=== PATIENT | male | born 1965 | race Caucasian/White ===

== ENCOUNTER 2017-02-21 18:32 | Emergency (ER) | payer BC, OTHER ==
[~2017-02-21] VITALS: Ht 180.3 cm; Wt 113.4 kg
[~2017-02-21 18:32] MED LIST: ALBU17AE23 INH; ALPR.5T PO; ALPR0.5T72 PO; CIPR500T78 PO; GLYB2.5T2 PO; INSU100V6 SC; MTR500T PO; NFMET1000 PO; ONDAN4ODT PO; SULF1TAB38 PO
[2017-02-21] MEDS ORDERED: MIDAZOLAM 5 MG/5 ML (VERSED) VIAL ONE (18:35)
[2017-02-21] MEDS ORDERED: GLUCAGON EMERGENCY 1 MG/KIT ONE (18:35)
--- OUTSIDE RECORDS SUMMARY | 2017-02-21 18:37 | XMS REPORT | Continuity of Care Document ---
Author Author [facility] Organization [facility] Address Unknown Phone Unavailable Allergies Active Description Code Type Severity Reaction Onset Reported/Identified Relationship to Patient Clinical Status Yes Penicillins [id number] Drug Allergy Mild N/A 02/17/2010 Medications Problems Date Dx Coded Attending Type Code Diagnosis Diagnosed By 02/17/2010 Ot 883.0 02/17/2010 Ot E000.0 02/17/2010 Ot E016.9 02/17/2010 Ot E849.7 02/17/2010 Ot E920.3 02/17/2010 Ot V06.1 06/02/2010 Ot 558.9 06/02/2010 Ot 787.03 03/29/2011 Ot 789.00 03/09/2012 Ot 789.06 12/10/2012 CHAZ VENEGAS MD Ot 250.00 12/10/2012 CHAZ VENEGAS MD Ot 787.20 12/10/2012 CHAZ VENEGAS MD Ot 935.1 12/10/2012 CHAZ VENEGAS MD Ot E000.8 12/10/2012 CHAZ VENEGAS MD Ot E915 12/10/2012 CHAZ VENEGAS MD Ot V58.67 11/13/2013 KAREN MELISSA DO Ot 530.5 11/16/2014 ERIKA SANDOVAL Ot 883.0 11/16/2014 ERIKA SANDOVAL Ot E000.0 11/16/2014 ERIKA SANDOVAL Ot E849.6 11/16/2014 ERIKA SANDOVAL Ot E928.9 01/03/2015 CHAZ VENEGAS MD Ot 935.1 01/03/2015 CHAZ VENEGAS MD Ot E911 Procedures Results Encounters ACCT No. Visit Date/Time Discharge Status Pt. Type Provider Facility Loc./Unit Complaint [id number] 01/03/2015 18:55:00 2014 20:29:00 DIS Emergency CHAZ VENEGAS MD [facility] ER [id number] 11/16/2014 13:36:00 2014 15:03:00 DIS Emergency ERIKA SANDOVAL [facility] ER [id number] 11/13/2013 16:27:00 2013 17:08:00 DIS Emergency KAREN MELISSA DO [facility] ER [id number] 12/10/2012 00:52:00 2012 01:36:00 DIS Emergency CHAZ VENEGAS MD [facility] ER [id number] 03/09/2012 12:37:00 Document Registration [id number] 03/29/2011 15:51:00 Document Registration [id number] 06/02/2010 13:57:00 Document Registration [id number] 02/17/2010 22:10:00 Document Registration
[2017-02-21] MEDS ORDERED: GLUCAGON EMERGENCY 1 MG/KIT IV ONE (18:45)
[2017-02-21] MEDS ORDERED: ONDANSETRON 4 MG/2 ML (SDV) Z0FRAN IVP ONE (18:45)
[2017-02-21] MEDS ORDERED: MIDAZOLAM 5 MG/5 ML (VERSED) VIAL IVP ONE (18:45)
[2017-02-21] MEDS ORDERED: PANT40TA2 PO (18:50)
--- NOTE | 2017-02-21 18:51 | ED Lower Extremity ---
General Chief Complaint: Foreign Body Stated Complaint: DIFFICULTY SWALLOWING Nursing Triage Note: pt reports he was eating a peña when he felt like part of it got caught in his throat. pt has hx of hiatal hernia. Source: patient Exam Limitations: no limitations History of Present Illness Time seen by provider: 18:47 Initial Comments To ER with reports of esophageal foreign body. Patient states that he was eating danish fries just about 1-1/2 hours ago. He felt as though they get stuck in his distal esophagus and points to the epigastric region. He states that he felt an instant spasm has been unable to swallow even his saliva since then. He does have a history of this earlier this year and was treated here in the emergency room with Versed and glucagon in this past. He has had an EGD before but it's been about 10 years ago. Upon my arrival into the room to assess him he feels as though he has passed this and is in fact able to swallow water and has no residual pain. Onset: just prior to arrival Severity: moderate Allergies and Home Medications Allergies Coded Allergies: Penicillins (Unverified Allergy, Mild, 02/17/10) Home Medications Albuterol 17 Gm Aerosol, 17 GM INH NEEDED, (Reported) Alprazolam 0.5 Mg Tab.rapdis, 0.5 EACH PO HS PRN for SLEEP, (Reported) Ciprofloxacin HCl 500 Mg Tablet, 500 MG PO BID, #14 Ref 0 Prescribed by: ERIKA YUN on 11/16/14 1443 Glyburide 2.5 Mg Tablet, 5 MG PO BID, (Reported) Insulin Glargine,Hum.rec.anlog 100 Unit/1 Ml Vial, 40 UNITS SC HS, (Reported) Metformin Hcl 1,000 Mg Tablet, 1,000 MG PO BID, (Reported) Metronidazole 500 Mg Tab, 500 MG PO BID, #14 Ref 0 Prescribed by: ERIKA YUN on 11/16/14 1443 Pantoprazole Sodium 40 Mg Tablet.dr, 40 MG PO DAILY, #30 Prescribed by: ISIS ROLLINS on 02/21/17 1850 Constitutional: see HPI EENTM: see HPI Respiratory: no symptoms reported Cardiovascular: no symptoms reported Genitourinary: no symptoms reported Skin: no symptoms reported Past Urztxvp-Higgjf-Ncpsnz Hx Patient Social History Recent Foreign Travel: No Contact w/Someone Who Travel: No Immunizations Up To Date Tetanus Booster (TDap): Less than 5yrs Respiratory Respiratory Disorders: Asthma Reproductive System Hx Reproductive Disorders: No Endocrine Endocrine Disorders: Diabetes, Non-Insulin dep Psychosocial Behavioral Health Disorders: Anxiety Family Medical History Significant Family History: No Pertinent Family Hx Physical Exam Vital Signs Vital Sign - Last 12Hours 02/21/17 18:45 Temp 97.0 Pulse 105 Resp 22 B/P (MAP) 190/124 Pulse Ox 96 Capillary Refill : General Appearance: WD/WN, no apparent distress HEENT: PERRL/EOMI, normal ENT inspection Neck: non-tender, full range of motion Respiratory: normal breath sounds, no respiratory distress, no accessory muscle use Gastrointestinal: normal bowel sounds, non tender, soft Hips: bilateral hip non-tender, bilateral hip normal inspection, bilateral hip normal range of motion Legs: bilateral leg non-tender, bilateral leg normal inspection, bilateral leg normal range of motion Knees: bilateral knee non-tender, bilateral knee normal inspection, bilateral knee normal range of motion Ankles: bilateral ankle non-tender, bilateral ankle normal inspection, bilateral ankle normal range of motion Neurologic/Tendon: normal sensation, normal motor functions, normal tendon functions Neurologic/Psychiatric: alert, normal mood/affect, oriented x 3 Skin: normal color, warm/dry Comments Patient was given a glass of water and he is able to drink this without regurgitation or vomiting. Progress/Results/Core Measures Results/Orders My Orders Orders - ISIS ROLLINS APRN Midazolam Injection (Versed Injection) (02/21/17 18:45) Ondansetron Injection (Zofran Injectio (02/21/17 18:45) Glucagon Emergency Kit (Glucagon Emergen (02/21/17 18:45) Midazolam Injection (Versed Injection) (02/21/17 18:35) Glucagon Emergency Kit (Glucagon Emergen (02/21/17 18:35) Vital Signs/I&O Vital Sign - Last 12Hours 02/21/17 18:45 Temp 97.0 Pulse 105 Resp 22 B/P (MAP) 190/124 Pulse Ox 96 Departure Impression Impression: Primary Impression: Esophageal obstruction due to food impaction Disposition: 01 HOME, SELF-CARE Condition: Stable Departure-Patient Inst. Decision time for Depature: 18:49 Referrals: NO,LOCAL PHYSICIAN (PCP) Primary Care Physician BANDAR MONROE APRN (Family) Primary Care Physician JON MANCUSO BRETT D DO JENKINS, XAVIER M MD KIDO, TAKAAKI MD Patient Instructions: Esophageal Dilation, Esophageal Stricture Add. Discharge Instructions: 1. Return to ER for any concerns 2. See your doctor next week 3. Call one of the surgeons listed to make an appointment to repeat an EGD within the next few weeks. All discharge instructions reviewed with patient and /or family. Voiced understanding. Scripts Pantoprazole Sodium (Protonix) 40 Mg Tablet. 40 MG PO DAILY, #30 TAB Prov: ISIS ROLLINS APRN 02/21/17 ISIS ROLLINS APRN Feb 21, 2017 18:51
[2017-02-21 19:16] VITALS: BP 154/101
== END 2017-02-21 19:16 | disposition home or self-care (01) ==
LOC: EDUNIT# 18:32 → ER 18:33
DX: T18.128A Food in esophagus causing other injury, initial encounter (principal); E11.9 Type 2 diabetes mellitus without complications; J45.909 Unspecified asthma, uncomplicated; F41.9 Anxiety disorder, unspecified; Z79.4 Long term (current) use of insulin; Z79.84 Long term (current) use of oral hypoglycemic drugs
CPT/HCPCS: 99282

== ENCOUNTER 2017-03-26 18:41 | Emergency (ER) | payer BC ==
[~2017-03-26 18:41] MED LIST changes: +PANT40TA2 PO
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
== END 2017-03-26 19:05 | disposition left against medical advice (07) ==
LOC: EDUNIT# 18:41 → ER 18:43
DX: S00.96XA Insect bite (nonvenomous) of unspecified part of head, initial encounter (principal); W57.XXXA Bitten or stung by nonvenomous insect and other nonvenomous arthropods, initial encounter

== ENCOUNTER 2018-04-25 22:22 | Emergency (ER) | payer BC ==
[~2018-04-25] VITALS: Ht 180.3 cm; Wt 115.7 kg
[2018-04-25] MEDS ORDERED: ONDANSETRON 4 MG (ZOFRAN) ORAL DISSOLVE TAB ONE (23:03)
[2018-04-25] MEDS ORDERED: PROMETHAZINE INJ 25 MG/ML (PHENERGAN) AMP IM ONE (23:15)
[2018-04-25] MEDS ORDERED: ONDANSETRON 4 MG/2 ML (SDV) Z0FRAN ONE (23:20)
[2018-04-25] MEDS ORDERED: ONDANSETRON 4 MG/2 ML (SDV) Z0FRAN IM ONE (23:30)
[2018-04-25] MEDS ORDERED: ONDANSETRON 4 MG (ZOFRAN) ORAL DISSOLVE TAB PO ONE (23:30)
[2018-04-25] MEDS ORDERED: ONDA4TAB11 PO ×2 (23:31→23:35)
--- NOTE | 2018-04-25 23:31 | ED GI ---
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 Sepsis Screen: No Definite Risk Source of Information: Patient Exam Limitations: No Limitations History of Present Illness Date Seen by Provider: Apr 25, 2018 Time Seen by Provider: 23:07 Initial Comments Patient presents to ER by private conveyance with chief complaint is having nausea vomiting and diarrhea for the past 2 hours. He said his mother had the same thing for the past day. He tried taking some Imodium couple hours ago vomited up. He thinks he might have some irritable bowel syndrome but he doesn' t take anything for it. He does not have any colitis or other inflammatory bowel disease. He is having no fevers or chills. Allergies and Home Medications Allergies Coded Allergies: Penicillins (Unverified Allergy, Mild, 02/17/10) Home Medications Albuterol 17 Gm Aerosol, 17 GM INH NEEDED, (Reported) Alprazolam 0.5 Mg Tab.rapdis, 0.5 EACH PO HS PRN for SLEEP, (Reported) Glyburide 2.5 Mg Tablet, 5 MG PO BID, (Reported) Insulin Glargine,Hum.rec.anlog 100 Unit/1 Ml Vial, 40 UNITS SC HS, (Reported) Metformin Hcl 1,000 Mg Tablet, 1,000 MG PO BID, (Reported) Metronidazole 500 Mg Tab, 500 MG PO BID Prescribed by: ERIKA YUN on 11/16/14 1443 Pantoprazole Sodium 40 Mg Tablet.dr, 40 MG PO DAILY Prescribed by: ISIS ROLLINS on 02/21/17 1850 Patient Home Medication List Home Medication List Reviewed: Yes Review of Systems Review of Systems Constitutional: No chills, No diaphoresis, No fever, No malaise EENTM: No Blurred Vision, No Double Vision Respiratory: Denies Cough, Denies Orthopnea Cardiovascular: Denies Chest Pain, Denies Lightheadedness Gastrointestinal: Denies Constipated; Diarrhea, Nausea, Poor Appetite, Poor Fluid Intake, Vomiting Genitourinary: Denies Discharge, Denies Drainage Musculoskeletal: No back pain, No joint pain Past Pnnakil-Flzjfz-Prfjtu Hx Patient Social History Alcohol Use: Denies Use Recreational Drug Use: No Recent Foreign Travel: No Contact w/Someone Who Travel: No Recent Infectious Disease Expo: No Recent Hopitalizations: No Immunizations Up To Date Tetanus Booster (TDap): Less than 5yrs Date of Influenza Vaccine: Apr 10, 2018 Seasonal Allergies Seasonal Allergies: No Past Medical History Surgeries: Yes (endoscopy and esophageal dilation) Respiratory: Yes Asthma Cardiac: Yes Hypertension Neurological: No Reproductive Disorders: No Genitourinary: No Gastrointestinal: Yes Hiatal Hernia Musculoskeletal: No Endocrine: Yes (DM Type II) Diabetes, Non-Insulin dep HEENT: No Cancer: No Psychosocial: Yes Anxiety Integumentary: No Blood Disorders: No Family Medical History No Pertinent Family Hx Physical Exam Vital Signs Vital Signs - First Documented 04/25/18 22:50 Temp 96.6 Pulse 89 Resp 17 B/P (MAP) 175/115 (135) Capillary Refill : Less Than 3 Seconds Height/Weight/BMI Height: 5'11.00" Weight: 255lbs. oz. 115.663788ey; 33.47 BMI Method:Stated General Appearance: WD/WN, no apparent distress HEENT: PERRL/EOMI, pharynx normal Respiratory: no respiratory distress, no accessory muscle use Cardiovascular: normal peripheral pulses, regular rate, rhythm Gastrointestinal: non tender, soft Neurologic/Psychiatric: alert, oriented x 3 Skin: normal color, warm/dry Progress/Results/Core Measures Results/Orders My Orders Orders - JOLENE GIORDANO Ondansetron Oral Dissolve Tab (Zofran (04/25/18 23:03) Promethazine Injection (Phenergan Injec (04/25/18 23:15) Ondansetron Injection (Zofran Injectio (04/25/18 23:30) Ondansetron Oral Dissolve Tab (Zofran (04/25/18 23:30) Ondansetron Injection (Zofran Injectio (04/25/18 23:20) Medications Given in ED Current Medications Medications Dose Ordered Sig/Janina Route Start Time Stop Time Status Last Admin Dose Admin Ondansetron HCl 4 mg ONCE ONCE IM 04/25/18 23:30 04/25/18 23:31 04/25/18 23:22 4 MG Ondansetron HCl 4 mg STK-MED ONCE .ROUTE 04/25/18 23:03 04/25/18 23:04 DC 04/25/18 23:05 4 MG Vital Signs/I&O 04/25/18 22:50 Temp 96.6 Pulse 89 Resp 17 B/P (MAP) 175/115 (135) Blood Pressure Mean: 135 Progress Progress Note : Time: 23:29 Progress Note We gave him sublingual Zofran and he said it was starting to help and then vomited. We gave him some IM Zofran and we will encourage him to use the Imodium and give him a couple days. Departure Impression Primary Impression: Gastroenteritis and colitis, viral Disposition: HOME, SELF-CARE Condition: Improved Departure-Patient Inst. Decision time for Depature: 23:30 Referrals: NO,LOCAL PHYSICIAN (PCP/Family) Primary Care Physician Patient Instructions: [id number] Add. Discharge Instructions: Typically this lasts from one to 3 days. Use the Zofran 1 tablet every 6 hours and the Imodium use 2 tablets and then every 4 hours afterwards if you have loose watery stool take another tablet. Drink lots of fluids. All discharge instructions reviewed with patient and/or family. Voiced understanding. Scripts Ondansetron (Ondansetron Odt) 4 Mg Tab.rapdis 4 MG PO Q6H PRN for NAUSEA/VOMITING, #8 TAB 0 Refills Prov: JOLENE GIORDANO 04/25/18 Work/School Note: Work Release Form Date Seen in the Emergency Department: Apr 25, 2018 Return to Work: Apr 28, 2018 Restrictions: No Restrictions JOLENE GIORDANO Apr 25, 2018 23:31
[2018-04-25 23:37] VITALS: BP 175/115
== END 2018-04-25 23:39 | disposition home or self-care (01) ==
LOC: EDUNIT# 22:22 → ER 22:23
DX: A08.4 Viral intestinal infection, unspecified (principal); J45.909 Unspecified asthma, uncomplicated; I10 Essential (primary) hypertension; E11.9 Type 2 diabetes mellitus without complications; F41.9 Anxiety disorder, unspecified; Z87.19 Personal history of other diseases of the digestive system; Z88.0 Allergy status to penicillin; Z79.51 Long term (current) use of inhaled steroids; Z79.4 Long term (current) use of insulin
CPT/HCPCS: 99284

== ENCOUNTER → 2018-09-28 | Day surgery (SDC) | payer BC, OTHER ==
[~2018-09-28] VITALS: Ht 180.3 cm; Wt 113.4 kg
[~2018-09-28] MED LIST changes: +GLUCAGON EMERGENCY 1 MG/KIT IV ONE; +INSU100I34; +LACTATED RINGERS 1,000 ML IV ONE; +LACTATED RINGERS 1,000 ML IV SCH; +LIDOCAINE PF 2% 5 ML (XYLOCAINE) VIAL ONE; +MIDAZOLAM 2 MG/2 ML (VERSED) VIAL ONE; +NEBI20TA2; +ONDA4TAB11 PO; +ONDANSETRON 4 MG/2 ML (SDV) Z0FRAN IVP ONE; +ONDANSETRON 4 MG/2 ML (SDV) Z0FRAN ONE; +SEVOFLURANE (ULTANE) 15 ML INHAL SOLN ONE; +SUCCINYLCHOLINE INJ 100 MG/5 ML SYR ONE; +fentaNYL INJECTION 100 MCG/2 ML AMP ONE; +proPOfol 200 MG/20 ML (DIPRIVAN) VIAL IV ONE
--- NOTE | 2018-09-28 20:38 | ED GI ---
General Chief Complaint: Abdominal/GI Problems Stated Complaint: HERNIA Nursing Triage Note: DIFFICULTY SWALLOWING X2 HRS. REPORTS FEELING LIKE SOMETHING STUCK SINCE 1830. HX HIATIAL HERNIA. Sepsis Screen: No Definite Risk Source of Information: Patient Exam Limitations: No Limitations History of Present Illness Date Seen by Provider: Sep 28, 2018 Time Seen by Provider: 20:37 Initial Comments To ER per private vehicle with reports of inability to swallow his secretions or food. This began 2 hours ago when he was eating a piece of beef. History of esophageal food impactions before, sometimes they clear up on their own, sometimes medications help and sometimes he has had have endoscopy. Timing/Duration: 1-3 Hours Severity/Quality: Moderate Location: Epigastric Radiation: No Radiation Activities at Onset: None Allergies and Home Medications Allergies Coded Allergies: Penicillins (Unverified Allergy, Mild, 02/17/10) Home Medications Albuterol 17 Gm Aerosol, 17 GM INH NEEDED, (Reported) Alprazolam 0.5 Mg Tab.rapdis, 0.5 EACH PO HS PRN for SLEEP, (Reported) Glyburide 2.5 Mg Tablet, 5 MG PO BID, (Reported) Patient Home Medication List Home Medication List Reviewed: Yes Review of Systems Review of Systems Constitutional: see HPI EENTM: No Symptoms Reported Respiratory: No Symptoms Reported Cardiovascular: No Symptoms Reported Gastrointestinal: See HPI Genitourinary: No Symptoms Reported Musculoskeletal: no symptoms reported Skin: no symptoms reported Psychiatric/Neurological: No Symptoms Reported Endocrine: No Symptoms Reported Past Qtfizwc-Oodqxw-Ctivzz Hx Patient Social History Alcohol Use: Denies Use Recreational Drug Use: No Smoking Status: Never a Smoker 2nd Hand Smoke Exposure: No Recent Foreign Travel: No Contact w/Someone Who Travel: No Recent Infectious Disease Expo: No Recent Hopitalizations: No Immunizations Up To Date Tetanus Booster (TDap): Less than 5yrs Date of Influenza Vaccine: Apr 10, 2018 Seasonal Allergies Seasonal Allergies: No Past Medical History Surgeries: Yes (endoscopy and esophageal dilation) Respiratory: Yes Asthma Cardiac: Yes Hypertension Neurological: No Reproductive Disorders: No Genitourinary: No Gastrointestinal: Yes Hiatal Hernia Musculoskeletal: No Endocrine: Yes (DM Type II) Diabetes, Non-Insulin dep HEENT: No Cancer: No Psychosocial: Yes Anxiety Integumentary: No Blood Disorders: No Family Medical History No Pertinent Family Hx Physical Exam Vital Signs Vital Signs - First Documented 09/28/18 20:24 Temp 97.8 Pulse 81 Resp 18 B/P (MAP) 172/99 (123) Pulse Ox 97 O2 Delivery Room Air Capillary Refill : Less Than 3 Seconds Height/Weight/BMI Height: 5'11.00" Weight: 250lbs. oz. 113.576265rp; 33.47 BMI Method:Stated General Appearance: WD/WN, no apparent distress HEENT: PERRL/EOMI, normal ENT inspection Respiratory: lungs clear, normal breath sounds, no respiratory distress, no accessory muscle use Cardiovascular: regular rate, rhythm, no murmur Gastrointestinal: normal bowel sounds, non tender, soft Extremities: normal range of motion, non-tender Neurologic/Psychiatric: alert, normal mood/affect, oriented x 3 Skin: normal color, warm/dry Progress/Results/Core Measures Results/Orders My Orders Orders - ISIS ROLLINS APRN Iv Heplock-Insert (Order) (09/28/18 20:35) Ondansetron Injection (Zofran Injectio (09/28/18 20:45) Glucagon Emergency Kit (Glucagon Emergen (09/28/18 20:45) Vital Signs/I&O 09/28/18 20:24 Temp 97.8 Pulse 81 Resp 18 B/P (MAP) 172/99 (123) Pulse Ox 97 O2 Delivery Room Air Blood Pressure Mean: 123 Departure Communication (Admissions) Dr. Gannon is here, will take the patient down to endoscopy Impression Primary Impression: Esophageal obstruction due to food impaction Disposition: 01 HOME, SELF-CARE Condition: Stable Departure-Patient Inst. Decision time for Depature: 20:45 Referrals: KAYE GARCIA MD (PCP/Family) Primary Care Physician ISIS ROLLINS APRN Sep 28, 2018 20:38
--- NOTE | 2018-09-28 20:45 | NUR ---
DR MANCUSO IN ROOM SPEAKING WITH PATIENT. PLAN FOR EGD FOR REMOVAL OF FOOD BOLUS. Addendum: 09/28/18 at [address] MANCUSO CANCELLED ZOFRAN/GLUCAGON ADMINISTRATION.
--- NOTE | 2018-09-28 21:10 | Consultation ---
History of Present Illness History of Present Illness Patient Consulted On(patito/time) 09/28/18 20:57 Time Seen by Provider: 20:49 History of Present Illness Surgery asked to consult regarding Dysphagia; possible impacted food bolus. HPI per ED: To ER per private vehicle with reports of inability to swallow his secretions or food. This began 2 hours ago when he was eating a piece of beef. History of esophageal food impactions before, sometimes they clear up on their own, sometimes medications help and sometimes he has had have endoscopy. Timing/Duration: 1-3 Hours Severity/Quality: Moderate Location: Epigastric Radiation: No Radiation Activities at Onset: None Pt states he had boiled beef and feels it is stuck in the lower esophagus. He states this has happened multiple times before and he "used to get multiple scopes, but last one was 10 years ago." He has also had food removed 2-3 times. He thinks he was told he has a Hiatal hernia. Rating the pain as 4 out of 10. Dull, achey pain. Allergies and Home Medications Allergies Coded Allergies: Penicillins (Unverified Allergy, Mild, 02/17/10) Home Medications Albuterol 17 Gm Aerosol, 17 GM INH NEEDED, (Reported) Alprazolam 0.5 Mg Tab.rapdis, 0.5 EACH PO HS PRN for SLEEP, (Reported) Glyburide 2.5 Mg Tablet, 5 MG PO BID, (Reported) Patient Home Medication List Home Medication List Reviewed: Yes Past Gxouhct-Hkwcnc-Glfnii Hx Patient Social History Alcohol Use: Denies Use Recreational Drug Use: No Smoking Status: Never a Smoker 2nd Hand Smoke Exposure: No Recent Foreign Travel: No Contact w/Someone Who Travel: No Recent Infectious Disease Expo: No Recent Hopitalizations: No Immunizations Up To Date Tetanus Booster (TDap): Less than 5yrs Date of Influenza Vaccine: Apr 10, 2018 Seasonal Allergies Seasonal Allergies: No Surgeries History of Surgeries: Yes (endoscopy and esophageal dilation) Respiratory History of Respiratory Disorde: Yes Respiratory Disorders: Asthma Cardiovascular History of Cardiac Disorders: Yes Cardiac Disorders: Hypertension Neurological History of Neurological Disord: No Reproductive System Hx Reproductive Disorders: No Genitourinary History of Genitourinary Disor: No Gastrointestinal History of Gastrointestinal Di: Yes Gastrointestinal Disorders: Hiatal Hernia Musculoskeletal History of Musculoskeletal Dis: No Endocrine History of Endocrine Disorders: Yes (DM Type II) Endocrine Disorders: Diabetes, Non-Insulin dep HEENT History of HEENT Disorders: No Cancer History of Cancer: No Psychosocial History of Psychiatric Problem: Yes Behavioral Health Disorders: Anxiety Integumentary History of Skin or Integumenta: No Blood Transfusions History of Blood Disorders: No Family Medical History Significant Family History: Cancer (brother of brain cancer) Review of Systems-General Constitutional: No chills, No diaphoresis, No weakness EENTM: No hearing loss, No blurred vision, No mouth pain, No epistaxis, No throat swelling Respiratory: No cough, No dyspnea on exertion, No hemoptysis, No phlegm, No short of breath Cardiovascular: No chest pain, No edema Gastrointestinal: abdominal pain; No constipation; dysphagia; No hematemesis, No jaundice; nausea Genitourinary: No dysuria, No frequency, No hematuria Musculoskeletal: No back pain, No joint pain, No joint swelling, No muscle stiffness Skin: No change in color, No change in hair/nails Psychiatric/Neurological: Anxiety; Denies Depressed, Denies Seizure, Denies Tremors Other Pt denies abnormal bleeding or bruising, no heat or cold intolerance Physical Exam-General Problems Physical Exam Vital Signs Vital Signs - First Documented 09/28/18 20:24 Temp 97.8 Pulse 81 Resp 18 B/P (MAP) 172/99 (123) Pulse Ox 97 O2 Delivery Room Air Capillary Refill : Less Than 3 Seconds General Appearance: WD/WN, mild distress Eyes: Bilateral Eye PERRL, Bilateral Eye EOMI HEENT: pharynx normal; No scleral icterus (R), No scleral icterus (L), No pale conjunctivae (R), No pale conjunctivae (L) Neck: supple; No thyromegaly Respiratory: chest non-tender, lungs clear, normal breath sounds, no respiratory distress, no accessory muscle use Cardiovascular: regular rate, rhythm, no edema, no murmur Gastrointestinal: normal bowel sounds, soft, no organomegaly, no pulsatile mass Back: no CVA tenderness, no vertebral tenderness Extremities: normal range of motion, non-tender, no pedal edema, no calf tenderness, normal capillary refill 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 He states glucagon has worked in the past; but I told him that only works 30% of the time and the endo crew and anesthesia is already here. Discussed risks and complications, not limited to pain, bleeding, possible esophageal perforation. All questions answered to his satisfaction. JON MANCUSO DO Sep 28, 2018 21:10
--- NOTE | 2018-09-28 22:23 | Progress Note-Post Operative ---
Post-Operative Progess Note Surgeon (s)/Casing Runner (s) Surgeon JON MANCUSO DO Casing Runner: none Pre-Operative Diagnosis Dysphagia, impacted food bolus Post-Operative Diagnosis Same Procedure & Operative Findings Date of Procedure 09/28/18 Procedure Performed/Findings EGD with removal of food bolus Anesthesia Type GET Estimated Blood Loss Estimated blood loss (mL): scant Specimens/Packing Specimens Removed boiled beef JON MANCUSO DO Sep 28, 2018 22:23
--- NOTE | 2018-09-28 22:35 | Anesthesia-General Post-Op ---
MAC Patient Condition Mental Status/LOC: Same as Preop Cardiovascular: Satisfactory Nausea/Vomiting: Absent Respiratory: Satisfactory Pain: Controlled Complications: Absent Post Op Complications Complications None Follow Up Care/Instructions Patient Instructions None needed. Anesthesiology Discharge Order Discharge Order Patient is doing well, no complaints, stable vital signs, no apparent adverse anesthesia problems. No complications reported per nursing. CLARA ELLIOTT CRNA Sep 28, 2018 22:35
[2018-09-28 23:19] VITALS: BP 133/82
--- NOTE | 2018-09-29 03:32 | OPERATIVE REPORT ---
DATE OF SERVICE: 09/28/2018 PREOPERATIVE DIAGNOSES: 1. Dysphagia. 2. Possible impacted food bolus. POSTOPERATIVE DIAGNOSES: 1. Dysphagia. 2. Possible impacted food bolus. PROCEDURE: EGD with removal of food bolus. SURGEON: Jonathon Mancuso DO. TESTER ARMATURE OR FIELDS: None. ANESTHESIA: IV sedation by PROGRAM AIDE GROUP WORK. SPECIMEN: Food bolus. BLOOD LOSS: Scant. FLUIDS: Per anesthesia. POSTOPERATIVE CONDITION: Stable. INDICATION FOR PROCEDURE: The patient is a 52-year-old male who states he had some boiled beef and felt like it got stuck and could not get it past. FINDINGS: The patient had a very large portion of boiled beef stuck down in the distal esophagus, did not appear to have any strictures and he also had a lot of food in his belly. PROCEDURE NOTE: After informed consent was obtained, the patient was brought to the endoscopy suite, placed in the bed in supine position. He was intubated by the PROGRAM AIDE GROUP WORK who then monitored his vitals the entire time, heart rate, blood pressure and pulse ox. I then inserted the scope down the mouth through the esophagus into the distal esophagus. I saw a large food bolus, took a picture of this and then carefully started taking it out; actually, I had to use the [employer] and came out 3 large pieces. It took quite a while to get this out. Finally, we get this out and pushed into the stomach. He had a lot of food and fluid in the stomach as well. No other obvious pathology. May have had a little bit of esophagitis, did not appear to have any strictures, pictures of the rest of the esophagus were taken at this point, then removed the scope up out of the stomach out of the esophagus and then out of the mouth. The patient tolerated the procedure, recovered in the endoscopy suite. Job ID: [id number] DocumentID: [id number] Dictated Date: 09/28/2018 22:19:50 Fur Repair Inspector Date: 09/29/2018 03:32:12 Dictated By: JONATHON MANCUSO DO
== END | disposition home or self-care (01) ==
LOC: EDUNIT# 20:09 → ER 20:10 → ENDO 20:49
PROVIDERS: ATTEND Surgery
DX: T18.128A Food in esophagus causing other injury, initial encounter (principal); K20.9 Esophagitis, unspecified; E11.9 Type 2 diabetes mellitus without complications; I10 Essential (primary) hypertension; J45.909 Unspecified asthma, uncomplicated; F41.9 Anxiety disorder, unspecified; E66.9 Obesity, unspecified; Z68.34 Body mass index [BMI] 34.0-34.9, adult; Z79.4 Long term (current) use of insulin; Z79.899 Other long term (current) drug therapy

== ENCOUNTER 2019-08-14 21:44 | Emergency (ER) | payer OTHER ==
[~2019-08-14] VITALS: Ht 180.3 cm; Wt 116.8 kg
[~2019-08-14 21:44] MED LIST changes: -GLUCAGON EMERGENCY 1 MG/KIT IV ONE; -LACTATED RINGERS 1,000 ML IV ONE; -LACTATED RINGERS 1,000 ML IV SCH; -LIDOCAINE PF 2% 5 ML (XYLOCAINE) VIAL ONE; -MIDAZOLAM 2 MG/2 ML (VERSED) VIAL ONE; -ONDANSETRON 4 MG/2 ML (SDV) Z0FRAN IVP ONE; -ONDANSETRON 4 MG/2 ML (SDV) Z0FRAN ONE; -SEVOFLURANE (ULTANE) 15 ML INHAL SOLN ONE; -SUCCINYLCHOLINE INJ 100 MG/5 ML SYR ONE; -fentaNYL INJECTION 100 MCG/2 ML AMP ONE; -proPOfol 200 MG/20 ML (DIPRIVAN) VIAL IV ONE
--- NOTE | 2019-08-14 22:21 | ED GI ---
General Chief Complaint: Abdominal/GI Problems Stated Complaint: VOMITTING Nursing Triage Note: Pt to ED with c/o vomiting and diarrhea once about an hour ago. Pt reports having floaters in R eye after vomiting, but reports improvement in the eye. Sepsis Screen: No Definite Risk Source of Information: Patient Exam Limitations: No Limitations History of Present Illness Date Seen by Provider: Aug 14, 2019 Time Seen by Provider: 22:05 Initial Comments Here with report of vomiting and diarrhea with a few episodes of each that occurred about an hour ago. Also noted floaters in his right eye. He states all of this is actually better now. He believes that it's related to stress that he is having at home and he's had this issue previously. He is a diabetic. He states overall he is doing much better and would just like to go home. Timing/Duration: 1 Hour, Gone Now Severity/Quality: Moderate, Cramping Location: Generalized Abdomen Radiation: No Radiation Activities at Onset: Activity Modifying Factors: Improves With Resting Associated Symptoms: No Back Pain, No Chest Pain, No Fever/Chills, No Fatigue; Nausea/Vomiting; No Shortness of Air, No Weakness Allergies and Home Medications Allergies Coded Allergies: Penicillins (Unverified Allergy, Mild, 02/17/10) Home Medications Albuterol 17 Gm Aerosol, 17 GM INH NEEDED, (Reported) Alprazolam 0.5 Mg Tab.rapdis, 0.5 EACH PO HS PRN for SLEEP, (Reported) Glyburide 2.5 Mg Tablet, 5 MG PO BID, (Reported) Patient Home Medication List Home Medication List Reviewed: Yes Review of Systems Review of Systems Constitutional: see HPI; No chills, No fever EENTM: No Symptoms Reported Respiratory: No Symptoms Reported Cardiovascular: No Symptoms Reported Gastrointestinal: See HPI, Diarrhea, Nausea, Vomiting Genitourinary: No Symptoms Reported Musculoskeletal: no symptoms reported Psychiatric/Neurological: Anxiety; Denies Weakness Past Xbhaiyp-Idcxsv-Oeqngq Hx Past Med/Social Hx: Reviewed Nursing Past Med/Soc Hx Patient Social History Alcohol Use: Denies Use Recreational Drug Use: No 2nd Hand Smoke Exposure: No Recent Foreign Travel: No Contact w/Someone Who Travel: No Recent Infectious Disease Expo: No Recent Hopitalizations: No Immunizations Up To Date Tetanus Booster (TDap): Less than 5yrs Date of Influenza Vaccine: Apr 10, 2018 Seasonal Allergies Seasonal Allergies: No Past Medical History Surgeries: Yes (endoscopy and esophageal dilation) Respiratory: Yes Asthma Cardiac: Yes Hypertension Neurological: No Reproductive Disorders: No Genitourinary: No Gastrointestinal: Yes Hiatal Hernia Musculoskeletal: No Endocrine: Yes (DM Type II) Diabetes, Non-Insulin dep HEENT: No Cancer: No Psychosocial: Yes Anxiety Integumentary: No Blood Disorders: No Family Medical History Reviewed Nursing Family Hx Cancer Physical Exam Vital Signs Vital Signs - First Documented 08/14/19 21:52 Temp 37.3 Pulse 82 Resp 14 B/P (MAP) 147/88 (107) Pulse Ox 98 O2 Delivery Room Air Capillary Refill : Less Than 3 Seconds Height/Weight/BMI Height: 5'11.00" Weight: 250lbs. oz. 113.650290wj; 35.00 BMI Method:Stated General Appearance: WD/WN, no apparent distress HEENT: PERRL/EOMI, pharynx normal Neck: full range of motion, supple Respiratory: lungs clear, normal breath sounds Cardiovascular: regular rate, rhythm, no murmur Gastrointestinal: normal bowel sounds, non tender, soft, no organomegaly, no pulsatile mass Neurologic/Psychiatric: alert, oriented x 3 Skin: normal color, warm/dry Progress/Results/Core Measures Results/Orders My Orders Orders - JEANNE ROME MD Accucheck Stat ONCE (08/14/19 22:14) Vital Signs/I&O 08/14/19 21:52 Temp 37.3 Pulse 82 Resp 14 B/P (MAP) 147/88 (107) Pulse Ox 98 O2 Delivery Room Air Blood Pressure Mean: 107 Progress Progress Note : Progress Note Seen and evaluated. I did offer workup which patient would like to defer at this point since he is feeling better. I think this is reasonable but we will check fingerstick blood sugar as well as visual acuity. Patient has ondansetron at home. I will give him work note so that he can go home and rest. I did discuss with him at length about returning if he is having any concerns and patient states that he would. Discharged home with return precautions. Patient verbalize understanding instructions and agreement with plan. Departure Impression Primary Impression: Nausea and vomiting Qualified Codes: R11.2 - Nausea with vomiting, unspecified Additional Impression: Diarrhea Qualified Codes: R19.7 - Diarrhea, unspecified Disposition: 01 HOME, SELF-CARE Condition: Improved Departure-Patient Inst. Decision time for Depature: 22:20 Referrals: KAYE GARCIA MD (PCP/Family) Primary Care Physician Patient Instructions: Acute Abdomen (Belly Pain), Adult (DC), Diarrhea in Adolescents and Adults, Nausea and Vomiting, Adult (DC) Add. Discharge Instructions: All discharge instructions reviewed with patient and/or family. Voiced understanding. Continue home medications as previously prescribed. Clear liquid diet for the next 12-24 hours and then advance as tolerated. Drink plenty of fluids with taking small sips frequently. Return for worse pain, fever, vomiting, weakness, breathing problems or other concerns as needed. Follow-up with your Dr. in a few days for recheck. Work/School Note: Work Release Form Date Seen in the Emergency Department: Aug 14, 2019 Return to Work: Aug 15, 2019 Restrictions: Return-No Vomiting(24hrs) JEANNE ROME MD Aug 14, 2019 22:21
[2019-08-14 22:30] VITALS: BP 147/88
== END 2019-08-14 22:35 | disposition home or self-care (01) ==
LOC: EDUNIT# 21:44 → ER 21:45
DX: R11.2 Nausea with vomiting, unspecified (principal); R19.7 Diarrhea, unspecified; J45.909 Unspecified asthma, uncomplicated; E11.9 Type 2 diabetes mellitus without complications; F41.9 Anxiety disorder, unspecified; Z88.0 Allergy status to penicillin
CPT/HCPCS: 82962

== ENCOUNTER 2020-08-24 14:07 | Emergency (ER) | payer OTHER ==
[~2020-08-24] VITALS: Ht 180 cm; Wt 113.0 kg
--- NOTE | 2020-08-24 14:45 | ED GI ---
General Chief Complaint: Foreign Body Stated Complaint: HIATAL? HERNIA Nursing Triage Note: ARRIVED VIA AMB TO ROOM 03. 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 STATES THIS HAS HAPPENED BEFORE. Sepsis Screen: No Definite Risk Source of Information: Patient Exam Limitations: No Limitations History of Present Illness Date Seen by Provider: Aug 24, 2020 Time Seen by Provider: 14:14 Initial Comments Here with report of having turkey stuck in his esophagus. Has had problems with esophageal obstruction in the past and has had to have EGD procedure to clear obstruction previously a few different times. Denies other injury or concerns. Patient is type II diabetic. Timing/Duration: 1/2 Hour Severity/Quality: Moderate, Cramping, Full Location: Epigastric Radiation: No Radiation Activities at Onset: Other (Eating) Modifying Factors: Worsens With Eating Associated Symptoms: No Fever/Chills; Nausea/Vomiting; No Shortness of Air Allergies and Home Medications Allergies Coded Allergies: Penicillins (Unverified Allergy, Mild, 02/17/10) Home Medications Albuterol 17 Gm Aerosol, 17 GM INH NEEDED, (Reported) Alprazolam 0.5 Mg Tab.rapdis, 0.5 EACH PO HS PRN for SLEEP, (Reported) Glyburide 2.5 Mg Tablet, 5 MG PO BID, (Reported) Patient Home Medication List Home Medication List Reviewed: Yes Review of Systems Review of Systems Constitutional: see HPI; No chills, No fever EENTM: See HPI Respiratory: Denies Cough, Denies Shortness of Air Cardiovascular: No Symptoms Reported Gastrointestinal: Nausea, Vomiting Genitourinary: No Symptoms Reported Musculoskeletal: no symptoms reported Skin: no symptoms reported All Other Systems Reviewed Negative Unless Noted: Yes Past Yovnhzq-Ntofsv-Bbbanw Hx Past Med/Social Hx: Reviewed Nursing Past Med/Soc Hx Patient Social History Alcohol Use: Denies Use Smoking Status: Never a Smoker 2nd Hand Smoke Exposure: No Recent Infectious Disease Expo: No Recent Hopitalizations: No Immunizations Up To Date Tetanus Booster (TDap): Less than 5yrs Date of Influenza Vaccine: Apr 10, 2018 Seasonal Allergies Seasonal Allergies: No Past Medical History Surgeries: Yes (endoscopy and esophageal dilation) Respiratory: Yes Asthma Cardiac: Yes Hypertension Neurological: No Reproductive Disorders: No Genitourinary: No Gastrointestinal: Yes Hiatal Hernia Musculoskeletal: No Endocrine: Yes (DM Type II) Diabetes, Non-Insulin dep HEENT: No Cancer: No Psychosocial: Yes Anxiety Integumentary: No Blood Disorders: No Family Medical History Reviewed Nursing Family Hx Cancer Physical Exam Vital Signs Vital Signs - First Documented 08/24/20 14:07 Temp 37.0 Pulse 70 Resp 16 B/P (MAP) 155/93 (113) Pulse Ox 97 O2 Delivery Room Air Capillary Refill : Less Than 3 Seconds Height/Weight/BMI Height: 5'11.00" Weight: 250lbs. oz. 113.064642xo; 34.00 BMI Method:Stated General Appearance: WD/WN, no apparent distress HEENT: PERRL/EOMI, pharynx normal Neck: full range of motion, supple Respiratory: lungs clear, normal breath sounds Cardiovascular: regular rate, rhythm, no murmur Gastrointestinal: non tender, soft Extremities: normal range of motion, non-tender Neurologic/Psychiatric: alert, oriented x 3 Skin: normal color, warm/dry Progress/Results/Core Measures Results/Orders My Orders Orders - JEANNE ROME MD Ed Iv/Invasive Line Start (08/24/20 14:26) Vital Signs/I&O 08/24/20 14:07 Temp 37.0 Pulse 70 Resp 16 B/P (MAP) 155/93 (113) Pulse Ox 97 O2 Delivery Room Air Blood Pressure Mean: 113 Progress Progress Note : Progress Note Seen and evaluated. IV ordered. Discussed case with Dr. Chavez at 1414 and he will see the patient and take him to the OR for clearing of the esophageal obstruction. This was discussed with the patient who agrees. Monitor patient. 1445: Dr. Chavez at bedside. Obstruction spontaneously cleared. He is able to drink water. Patient has been seen by Dr. Mancuso previously. Dr. Chavez would like him to be seen within the next 3 to 6 weeks for recheck and repeat upper endoscopy. Recommend clear liquid diet for the next 2 to 3 days and then advance as tolerated. We will monitor him in the ER for continuing improvement and discharge when we ensure he is comfortable. 1515: Patient remains doing better and resting peacefully. Is discharged home with return precautions. Patient verbalized understanding of instructions and agreement with plan. Departure Communication (Admissions) Time/Spoke to Consulting Phy: 14:14 Impression Primary Impression: Foreign body in esophagus Qualified Codes: T18.108A - Unspecified foreign body in esophagus causing other injury, initial encounter Disposition: HOME, SELF-CARE Condition: Improved Admissions Decision to Admit Reason: Admit from ER (General) Decision to Admit/Date: Aug 24, 2020 Time/Decision to Admit Time: 14:14 Departure-Patient Inst. Decision time for Depature: 15:15 Referrals: JON MANCUSO BRETT D DO MANZER, JONATHAN L MD (PCP/Family) Primary Care Physician Patient Instructions: Food Obstruction Add. Discharge Instructions: All discharge instructions reviewed with patient and/or family. Voiced unders tanding. Clear liquid diet for the next 2 to 3 days and then advance as tolerated. You need to follow-up with Dr. Mancuso or Dr. Chavez in the next 3 to 6 weeks for recheck and further evaluation including repeat upper endoscopy as indicated. Return for worse pain, fever, vomiting, weakness, breathing problems or other concerns as needed. JEANNE ROME MD Aug 24, 2020 14:45
--- NOTE | 2020-08-24 14:55 | Consultation - Surgery ---
BANDAR SAGE MED STUDENT 08/24/20 1455: History of Present Illness History of Present Illness Patient Consulted On(patito/time) 08/24/20 14:50 Date Seen by Provider: Aug 24, 2020 Time Seen by Provider: 14:45 Reason for Visit: esophageal food bolus impaction History of Present Illness surgery Consulted to esophageal food bolus disimpaction. Pt is a 54y/o M with PMH of Hiatal hernia, HTN, and IDDM who pres to ER to food bolus impaction. Pt states it stated after eating turkey for lunch at 13:00- denies any recent dysphagia for solids for liquids. Pt states this has happened 'many times' over 20 years, most recently 2 years ago - Dr. Fontaine disimpacted bolus then. Pt contributes impaction hx to his hiatal hernia, denies hx of any other GI dx. Denies any dx discovery when EGD was last done for impaction 2 years ago. Pt cannot swallow own saliva. Denies abd pain and N/V, or recent weight loss. Denies chest pain, or palpitation. Allergies and Home Medications Allergies Coded Allergies: Penicillins (Unverified Allergy, Mild, 02/17/10) Home Medications Albuterol 17 Gm Aerosol, 17 GM INH NEEDED, (Reported) Alprazolam 0.5 Mg Tab.rapdis, 0.5 EACH PO HS PRN for SLEEP, (Reported) Glyburide 2.5 Mg Tablet, 5 MG PO BID, (Reported) Past Sulomtu-Frycol-Fednuh Hx Patient Social History Smoking Status: Never a Smoker 2nd Hand Smoke Exposure: No Recent Hopitalizations: No Immunizations Up To Date Tetanus Booster (TDap): Less than 5yrs Date of Influenza Vaccine: Apr 10, 2018 Seasonal Allergies Seasonal Allergies: No Surgeries History of Surgeries: Yes (endoscopy and esophageal dilation) Respiratory History of Respiratory Disorde: Yes Respiratory Disorders: Asthma Cardiovascular History of Cardiac Disorders: Yes Cardiac Disorders: Hypertension Neurological History of Neurological Disord: No Reproductive System Hx Reproductive Disorders: No Genitourinary History of Genitourinary Disor: No Gastrointestinal History of Gastrointestinal Di: Yes Gastrointestinal Disorders: Hiatal Hernia Musculoskeletal History of Musculoskeletal Dis: No Endocrine History of Endocrine Disorders: Yes (DM Type II) Endocrine Disorders: Diabetes, Non-Insulin dep HEENT History of HEENT Disorders: No Cancer History of Cancer: No Psychosocial History of Psychiatric Problem: Yes Behavioral Health Disorders: Anxiety Integumentary History of Skin or Integumenta: No Blood Transfusions History of Blood Disorders: No Family Medical History Significant Family History: Cancer Review of Systems-General Constitutional: No chills, No diaphoresis EENTM: other (food impaction, cant swallow saliva. ); No ear discharge, No hearing loss, No blurred vision, No double vision Respiratory: No dyspnea on exertion, No hemoptysis, No short of breath Cardiovascular: No chest pain, No edema Gastrointestinal: No abdominal pain, No constipation, No diarrhea; dysphagia; No hematemesis, No heartburn, No melena, No nausea, No vomiting Genitourinary: No dysuria, No incontinence Musculoskeletal: No back pain, No joint pain Skin: No change in color, No change in hair/nails Psychiatric/Neurological: Anxiety; Denies Headache, Denies Numbness Physical Exam-General Problems Physical Exam Vital Signs Vital Signs - First Documented 08/24/20 14:07 Temp 37.0 Pulse 70 Resp 16 B/P (MAP) 155/93 (113) Pulse Ox 97 O2 Delivery Room Air Capillary Refill : Less Than 3 Seconds General Appearance: WD/WN, no apparent distress HEENT: PERRL/EOMI, normal ENT inspection Neck: non-tender, normal inspection Respiratory: chest non-tender, lungs clear, normal breath sounds, no respiratory distress Cardiovascular: regular rate, rhythm, no edema Peripheral Pulses: 2+ Radial Pulses (R), 2+ Radial Pulses (L) Gastrointestinal: normal bowel sounds, non tender, no organomegaly, no pulsatile mass Rectal: deferred Back: normal inspection, no CVA tenderness, no vertebral tenderness Extremities: non-tender, normal inspection 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 SHEELA FONTAINE DO 08/26/20 1602: History of Present Illness History of Present Illness History of Present Illness Consult seen and evaluated in ED for esophageal obstruction. Patient is a 54 year old male who was eating turkey for lunch and had lodge in esophagus. Can not keep secretions down. Patient then felt this area relieved of pressure and food went down. Now can keep secretions down. He has history of hiatal hernia and need for removal of food bolus by Dr. Gannon about 2 years ago. No other complaints at this time. Denies fever sweats chills shortness of breath or chest pain. Allergies and Home Medications Allergies Coded Allergies: Penicillins (Unverified Allergy, Mild, 02/17/10) Home Medications Albuterol 17 Gm Aerosol, 17 GM INH NEEDED, (Reported) Alprazolam 0.5 Mg Tab.rapdis, 0.5 EACH PO HS PRN for SLEEP, (Reported) Glyburide 2.5 Mg Tablet, 5 MG PO BID, (Reported) Patient Home Medication List Home Medication List Reviewed: Yes Past Ehofxna-Zjiebt-Xjldjd Hx Reviewed Nursing Assessment Reviewed/Agree w Nursing PMH: Yes Family Medical History Significant Family History: No Pertinent Family Hx Review of Systems-General Constitutional: No chills, No diaphoresis EENTM: other (food impaction, cant swallow saliva. ); No ear discharge, No hea ring loss, No blurred vision, No double vision Respiratory: No dyspnea on exertion, No hemoptysis, No short of breath Cardiovascular: No chest pain, No edema Gastrointestinal: No abdominal pain, No constipation, No diarrhea; dysphagia; No hematemesis, No melena, No nausea, No vomiting Musculoskeletal: No back pain, No joint pain Skin: No change in color, No change in hair/nails Psychiatric/Neurological: Anxiety; Denies Headache, Denies Numbness All Other Systems Reviewed Negative Unless Noted: Yes (Negative excepted noted.) Physical Exam-General Problems Physical Exam General Appearance: WD/WN, no apparent distress HEENT: PERRL/EOMI, normal ENT inspection Neck: non-tender, normal inspection Respiratory: chest non-tender, no respiratory distress, no accessory muscle use Cardiovascular: regular rate, rhythm, no JVD Gastrointestinal: non tender, no organomegaly, no pulsatile mass Rectal: deferred Back: normal inspection, no CVA tenderness Extremities: non-tender, normal inspection 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 will hold off on doing at this time. discussed with patient staying on easy to swallow diet and follow up with Dr. Gannon this week or next to discuss repeating egd may benefit from dilation Patient agrees with plan. Supervisory-Addendum Brief Verification & Attestation Participated in pt care: history, MDM, physical Personally performed: exam, history, MDM, supervision of care Care discussed with: Medical Student Procedures: n/a Results interpretation: Verified all documentation Verification and Attestation of Medical Student E/M Service A medical student performed and documented this service in my presence. I reviewed and verified all information documented by the medical student and made modifications to such information, when appropriate. I personally performed the physical exam and medical decision making. Sheela Fontaine, Aug 24, 2020,16:06 BANDAR SAGE MED STUDENT Aug 24, 2020 14:55 SHEELA FONTAINE DO Aug 26, 2020 16:02
[2020-08-24 15:30] VITALS: BP 131/83
== END 2020-08-24 15:30 | disposition home or self-care (01) ==
LOC: EDUNIT# 14:07 → ER 14:08 → SDC 14:41 → ER 15:30
DX: T18.128A Food in esophagus causing other injury, initial encounter (principal); J45.909 Unspecified asthma, uncomplicated; F41.9 Anxiety disorder, unspecified; E11.9 Type 2 diabetes mellitus without complications; Z88.0 Allergy status to penicillin; Z80.9 Family history of malignant neoplasm, unspecified

== ENCOUNTER 2020-11-14 12:16 | Emergency (ER) | payer OTHER ==
[~2020-11-14] VITALS: Ht 180.3 cm; Wt 113.4 kg
[2020-11-14 12:21] VITALS: BP 148/89
[2020-11-14] MEDS ORDERED: TETANUS,DIPTH,PERTUSS P/F (BOOSTRIX) 0.5 ML VIAL IM ONE (12:30)
--- NOTE | 2020-11-14 12:30 | ED Integumentary General ---
General Chief Complaint: Bite-Animal/Human/Insect Stated Complaint: R LEG DOG BITE Source: patient Exam Limitations: no limitations History of Present Illness Date Seen by Provider: November 14, 2020 Time Seen by Provider: 12:20 Initial Comments To ER by private vehicle with reports of a dog bite to the posterior right thigh that occurred just prior to arrival this morning. He was outside doing some yard work at his home in [place] when his neighbors for dogs came up to him. He thought they were going to play and they did that one of them got a bit rough. It bit the back of his right thigh. His own tetanus vaccine was most recently about 10 years ago. He states that the neighbors take care of several dogs and he believes him to be vaccinated for rabies but he is not sure when he will check it out once he gets home. Timing/Duration: constant Severity: moderate Location: none Associated Symptoms: denies symptoms Allergies and Home Medications Allergies Coded Allergies: Penicillins (Unverified Allergy, Mild, 02/17/10) Home Medications Albuterol 17 Gm Aerosol, 17 GM INH NEEDED, (Reported) Alprazolam 0.5 Mg Tab.rapdis, 0.5 EACH PO HS PRN for SLEEP, (Reported) Glyburide 2.5 Mg Tablet, 5 MG PO BID, (Reported) Patient Home Medication List Home Medication List Reviewed: Yes Review of Systems Review of Systems Constitutional: see HPI EENTM: see HPI Respiratory: no symptoms reported Cardiovascular: no symptoms reported Genitourinary: no symptoms reported Musculoskeletal: no symptoms reported Skin: no symptoms reported Psychiatric/Neurological: No Symptoms Reported Endocrine: No Symptoms Reported Hematologic/Lymphatic: No Symptoms Reported Past Mkkjvpe-Uswigx-Pmfswj Hx Patient Social History 2nd Hand Smoke Exposure: No Recent Hopitalizations: No Immunizations Up To Date Tetanus Booster (TDap): Less than 5yrs Date of Influenza Vaccine: Apr 10, 2018 Seasonal Allergies Seasonal Allergies: No Past Medical History Surgeries: Yes (endoscopy and esophageal dilation) Respiratory: Yes Asthma Cardiac: Yes Hypertension Neurological: No Reproductive Disorders: No Genitourinary: No Gastrointestinal: Yes Hiatal Hernia Musculoskeletal: No Endocrine: Yes (DM Type II) Diabetes, Non-Insulin dep HEENT: No Cancer: No Psychosocial: Yes Anxiety Integumentary: No Blood Disorders: No Family Medical History No Pertinent Family Hx Physical Exam Vital Signs Capillary Refill : General Appearance: WD/WN, no apparent distress HEENT: PERRL/EOMI, normal ENT inspection Neck: non-tender, full range of motion Respiratory: no respiratory distress, no accessory muscle use Extremities: normal range of motion, non-tender, other (There is a hematoma to the posterior right thigh about the diameter of a golf ball and with and minimally elevated. Within this there are 3 abrasions. I am unable to express any blood these do not seem to be puncture wounds. However he is diabetic antibiotic prophylaxis would be safest.) Neurologic/Psychiatric: alert, normal mood/affect, oriented x 3 Skin: normal color, warm/dry Progress/Results/Core Measures Results/Orders My Orders Orders - ISIS ROLLINS APRN Dipht,Pertuss(Acell),Tet Adult (Boostrix (11/14/20 12:30) Departure Impression Primary Impression: Dog bite Disposition: 01 HOME, SELF-CARE Condition: Stable Departure-Patient Inst. Decision time for Depature: 12:30 Referrals: KAYE GARCIA MD (PCP/Family) Primary Care Physician Patient Instructions: Animal Bites (DC) Add. Discharge Instructions: 1. Take the antibiotics as directed. Return to ER for any concerns. Please follow-up with your neighbors to determine the rabies vaccination status of this dog. If it is unvaccinated then the dog should be monitored for 10 days for any sign of rabies. If it shows those signs then you need to be vaccinated as well. All discharge instructions reviewed with patient and/or family. Voiced understanding. Scripts Metronidazole (Flagyl) 500 Mg Tablet 500 MG PO TID, #15 TAB Prov: ISIS ROLLINS APRN 11/14/20 Doxycycline Hyclate (Doxycycline Hyclate) 100 Mg Tablet 100 MG PO BID, #10 TAB 0 Refills Prov: ISIS ROLLINS APRN 11/14/20 ISIS ROLLINS APRN November 14, 2020 12:30
[2020-11-14] MEDS ORDERED: DOXY100T2 PO (12:31)
[2020-11-14] MEDS ORDERED: METR500T PO (12:31)
== END 2020-11-14 12:49 | disposition home or self-care (01) ==
LOC: EDUNIT# 12:16 → ER 12:18
DX: S71.151A Open bite, right thigh, initial encounter (principal); F41.9 Anxiety disorder, unspecified; J45.909 Unspecified asthma, uncomplicated; I10 Essential (primary) hypertension; E11.9 Type 2 diabetes mellitus without complications; Z88.0 Allergy status to penicillin; Z23 Encounter for immunization; Z79.899 Other long term (current) drug therapy; W54.0XXA Bitten by dog, initial encounter
CPT/HCPCS: 90715; 99284

== ENCOUNTER 2020-11-30 13:22 | Emergency (ER) | payer OTHER ==
[~2020-11-30] VITALS: Ht 180 cm; Wt 113.0 kg
[~2020-11-30 13:22] MED LIST changes: +DOXY100T2 PO; +METR500T PO
[2020-11-30] MEDS ORDERED: ANTACID SUSP 30 ML UDC (MYLANTA) PO ONE (13:45)
[2020-11-30] MEDS ORDERED: LIDOCAINE 2% VISCOUS 15 ML UDC PO ONE (13:45)
--- NOTE | 2020-11-30 14:09 | ED GI ---
General Chief Complaint: Abdominal/GI Problems Stated Complaint: HIATAL HERNIA DISCOMFORT Nursing Triage Note: ARRIVED VIA AMB WITH COMPLAINTS OF EPIGASTRIC PAIN STARTING AT NOON. STATES HE HAS A HIATEL HERNIA AND HAS HAD THIS PAIN OFF AND ON FOR 20 YEARS. Sepsis Screen: No Definite Risk Source of Information: Patient Exam Limitations: No Limitations History of Present Illness Date Seen by Provider: November 30, 2020 Time Seen by Provider: 14:08 Initial Comments was eating a piece of rotisserie chicken at about 11 AM and a piece got stuck. He is unable to swallow Timing/Duration: 1-3 Hours Severity/Quality: Moderate Location: Epigastric Radiation: No Radiation Activities at Onset: None Allergies and Home Medications Allergies Coded Allergies: Penicillins (Unverified Allergy, Mild, 02/17/10) Home Medications Albuterol 17 Gm Aerosol, 17 GM INH NEEDED, (Reported) Alprazolam 0.5 Mg Tab.rapdis, 0.5 EACH PO HS PRN for SLEEP, (Reported) Doxycycline Hyclate 100 Mg Tablet, 100 MG PO BID Prescribed by: ISIS ROLLINS on 11/14/20 1231 Glyburide 2.5 Mg Tablet, 5 MG PO BID, (Reported) Metronidazole 500 Mg Tablet, 500 MG PO TID Prescribed by: ISIS ROLLINS on 11/14/20 1231 Patient Home Medication List Home Medication List Reviewed: Yes Review of Systems Review of Systems Constitutional: see HPI EENTM: No Symptoms Reported Respiratory: No Symptoms Reported Cardiovascular: No Symptoms Reported Gastrointestinal: See HPI Genitourinary: No Symptoms Reported Musculoskeletal: no symptoms reported Skin: no symptoms reported Psychiatric/Neurological: No Symptoms Reported Endocrine: No Symptoms Reported Hematologic/Lymphatic: No Symptoms Reported Past Ziulvpi-Etbafy-Dtsxrc Hx Patient Social History Alcohol Use: Denies Use Smoking Status: Never a Smoker 2nd Hand Smoke Exposure: No Recent Infectious Disease Expo: No Recent Hopitalizations: No Immunizations Up To Date Tetanus Booster (TDap): More than 5yrs Date of Influenza Vaccine: Apr 10, 2018 Seasonal Allergies Seasonal Allergies: No Past Medical History Surgeries: Yes (endoscopy and esophageal dilation) Respiratory: Yes Asthma Cardiac: Yes Hypertension Neurological: No Reproductive Disorders: No Genitourinary: No Gastrointestinal: Yes Hiatal Hernia Musculoskeletal: No Endocrine: Yes (DM Type II) Diabetes, Non-Insulin dep HEENT: No Cancer: No Psychosocial: Yes Anxiety Integumentary: No Blood Disorders: No Family Medical History No Pertinent Family Hx Physical Exam Vital Signs Vital Signs - First Documented 11/30/20 13:40 Temp 36.1 Pulse 73 Resp 16 B/P (MAP) 159/110 (126) Pulse Ox 96 O2 Delivery Room Air Capillary Refill : Less Than 3 Seconds Height/Weight/BMI Height: 5'11.00" Weight: 250lbs. oz. 113.958694dy; 34.00 BMI Method:Stated General Appearance: WD/WN, no apparent distress Respiratory: no respiratory distress, no accessory muscle use Cardiovascular: regular rate, rhythm, no murmur, other (No stridor no drooling swallows his own secretions however, when given water he regurgitates this) Gastrointestinal: normal bowel sounds, soft Extremities: normal range of motion, non-tender Progress/Results/Core Measures Results/Orders My Orders Orders - ISIS ROLLINS APRN Antacid Suspension (Mylanta Suspension (11/30/20 13:45) Lidocaine 2% Viscous 15 Ml (Xylocaine Vi (11/30/20 13:45) Vital Signs/I&O 11/30/20 13:40 Temp 36.1 Pulse 73 Resp 16 B/P (MAP) 159/110 (126) Pulse Ox 96 O2 Delivery Room Air Blood Pressure Mean: 126 Departure Communication (Admissions) 1408-Patient spontaneously passed the food bolus. Ready to go home. He is now able to swallow. Impression Primary Impression: Foreign body in esophagus Disposition: 01 HOME, SELF-CARE Condition: Stable Departure-Patient Inst. Decision time for Depature: 14:06 Referrals: KAYE GARCIA MD (PCP/Family) Primary Care Physician Patient Instructions: No Instuctions Given ISIS ROLLINS APRN November 30, 2020 14:09
[2020-11-30 14:28] VITALS: BP 126/80
== END 2020-11-30 14:28 | disposition home or self-care (01) ==
LOC: EDUNIT# 13:22 → ER 13:24
DX: T18.128A Food in esophagus causing other injury, initial encounter (principal); I10 Essential (primary) hypertension; E11.9 Type 2 diabetes mellitus without complications; J45.909 Unspecified asthma, uncomplicated; F41.9 Anxiety disorder, unspecified; Z79.84 Long term (current) use of oral hypoglycemic drugs; Z79.899 Other long term (current) drug therapy
CPT/HCPCS: 99282

== ENCOUNTER 2021-01-27 17:45 | Emergency (ER) | payer OTHER ==
[~2021-01-27] VITALS: Ht 180.3 cm; Wt 110.0 kg
--- NOTE | 2021-01-27 18:37 | ED General ---
General Chief Complaint: General Problems/Pain Stated Complaint: SWALLOWED MOLD Nursing Triage Note: Pt arrival to ER from [facility] break room where he took a bite of moldy pie. Pt states that he was on his lunch break and took a bite of a piece of pie and after swallowing it, it tasted funny so he looked at the rest of the piece and it had mold on the crust. Pt states that as a child he was allergic to mold so he freaked out and came here. Source of Information: Patient Exam Limitations: No Limitations History of Present Illness Date Seen by Provider: Jan 27, 2021 Time Seen by Provider: 18:37 Initial Comments Ate some moldy pie about 2 hours ago. Concerned he might have a reaction to it. Also feels depressed but does not necessarily want to start any medication for it. He has a lot of stress currently. No thoughts of hurting himself or anyone else. Timing/Duration: 1-2 Days Severity: Moderate Associated Systoms: Denies Symptoms Allergies and Home Medications Allergies Coded Allergies: Penicillins (Unverified Allergy, Mild, 02/17/10) Home Medications Albuterol 17 Gm Aerosol, 17 GM INH NEEDED, (Reported) Alprazolam 0.5 Mg Tab.rapdis, 0.5 EACH PO HS PRN for SLEEP, (Reported) Doxycycline Hyclate 100 Mg Tablet, 100 MG PO BID Prescribed by: ISIS ROLLINS on 11/14/20 1231 Glyburide 2.5 Mg Tablet, 5 MG PO BID, (Reported) Metronidazole 500 Mg Tablet, 500 MG PO TID Prescribed by: ISIS ROLLINS on 11/14/20 1231 Patient Home Medication List Home Medication List Reviewed: Yes Review of Systems Review of Systems Constitutional: see HPI EENTM: see HPI Respiratory: no symptoms reported Cardiovascular: no symptoms reported Genitourinary: no symptoms reported Musculoskeletal: no symptoms reported Skin: no symptoms reported Psychiatric/Neurological: No Symptoms Reported Hematologic/Lymphatic: No Symptoms Reported Immunological/Allergic: no symptoms reported Past Rfpticv-Dnomzj-Inkezi Hx Patient Social History Tobacco Use?: No Use of E-Cig and/or Vaping dev: No Substance use?: No Alcohol Use?: No Pt feels they are or have been: No Immunizations Up To Date Tetanus Booster (TDap): More than 5yrs Influenza Vaccine Up-to-Date: No; Not Current Seasonal Allergies Seasonal Allergies: No Past Medical History Surgeries: Yes (endoscopy and esophageal dilation) Respiratory: Yes Asthma Cardiac: Yes Hypertension Neurological: No Reproductive Disorders: No Genitourinary: No Gastrointestinal: Yes Hiatal Hernia Musculoskeletal: No Endocrine: Yes (DM Type II) Diabetes, Non-Insulin dep HEENT: No Cancer: No Psychosocial: Yes Anxiety Integumentary: No Blood Disorders: No Family Medical History No Pertinent Family Hx Physical Exam Vital Signs Vital Signs - First Documented 01/27/21 18:10 Temp 36.3 Pulse 84 Resp 18 B/P (MAP) 113/82 (92) Pulse Ox 99 O2 Delivery Room Air Capillary Refill : Less Than 3 Seconds Height, Weight, BMI Height: 5'11.00" Weight: 250lbs. oz. 113.969911ys; 33.00 BMI Method:Stated General Appearance: No Apparent Distress, WD/WN Eyes: Bilateral Eye Normal Inspection, Bilateral Eye PERRL, Bilateral Eye EOMI HEENT: PERRL/EOMI, TMs Normal Neck: Full Range of Motion, Normal Inspection Respiratory: Normal Breath Sounds, No Accessory Muscle Use, No Respiratory Distress Cardiovascular: Regular Rate, Rhythm, No Edema, Normal Peripheral Pulses Gastrointestinal: Normal Bowel Sounds, Non Tender, Soft Extremity: Normal Capillary Refill, Normal Inspection Neurologic/Psychiatric: Alert, Oriented x3 Skin: Normal Color, Warm/Dry Progress/Results/Core Measures Suspected Sepsis SIRS Temperature: Pulse: 84 Respiratory Rate: 18 Blood Pressure 113 /82 Mean: 92 Results/Orders Vital Signs/I&O 01/27/21 18:10 Temp 36.3 Pulse 84 Resp 18 B/P (MAP) 113/82 (92) Pulse Ox 99 O2 Delivery Room Air Capillary Refill : Less Than 3 Seconds Blood Pressure Mean: 92 Departure Impression Primary Impression: General symptom Disposition: 01 HOME, SELF-CARE Condition: Stable Departure-Patient Inst. Decision time for Depature: 19:11 Referrals: KAYE GARCIA MD (PCP/Family) Primary Care Physician Patient Instructions: NO INSTRUCTIONS GIVEN Add. Discharge Instructions: All discharge instructions reviewed with patient and/or family. Voiced understanding. Work/School Note: Work Release Form Date Seen in the Emergency Department: Jan 27, 2021 Return to Work: Jan 28, 2021 ISIS ROLLINS APRN Jan 27, 2021 18:37
[2021-01-27 22:53] VITALS: BP 116/80
== END 2021-01-27 19:19 | disposition home or self-care (01) ==
LOC: EDUNIT# 17:45 → ER 17:47
DX: Z03.6 Encounter for observation for suspected toxic effect from ingested substance ruled out (principal); I10 Essential (primary) hypertension; E11.9 Type 2 diabetes mellitus without complications; F41.9 Anxiety disorder, unspecified; J45.909 Unspecified asthma, uncomplicated; Z88.0 Allergy status to penicillin; Z79.4 Long term (current) use of insulin; Z79.899 Other long term (current) drug therapy
CPT/HCPCS: 99281

== ENCOUNTER → 2021-09-12 | Day surgery (SDC) | payer OTHER ==
[2021-09-12] VITALS (7 sets, daily range): BP systolic 129–149; BP diastolic 77–97
[~2021-09-12] VITALS: Ht 180.3 cm; Wt 115.7 kg
[~2021-09-12] MED LIST changes: +ANTACID SUSP 30 ML UDC (MYLANTA) PO ONE; +LACTATED RINGERS 1,000 ML IV PRN; +LIDOCAINE 2% VISCOUS 15 ML UDC PO ONE; +LIDOCAINE PF 2% 5 ML (XYLOCAINE) VIAL ONE; +MIDAZOLAM 2 MG/2 ML (VERSED) VIAL ONE; +ONDANSETRON 4 MG/2 ML (SDV) Z0FRAN ONE; +SEVOFLURANE (ULTANE) 15 ML INHAL SOLN ONE; +SUCCINYLCHOLINE INJ 20 MG/1 ML 10 ML VIAL ONE; +proPOfol 200 MG/20 ML (DIPRIVAN) VIAL IV ONE
--- NOTE | 2021-09-12 14:08 | ED General ---
General Stated Complaint: HITAL HERNIA PAIN Source of Information: Patient Exam Limitations: No Limitations (ISIS ROLLINS APRN) History of Present Illness Date Seen by Provider: Sep 12, 2021 Time Seen by Provider: 14:03 Initial Comments Eating a piece of barbecue chicken at about 1 PM and it got stuck in the lower esophagus. Has had EGD several times before for this. Timing/Duration: 1 Hour Severity: Moderate Associated Systoms: Denies Symptoms (ISIS ROLLINS APRN) Allergies and Home Medications Allergies Coded Allergies: Penicillins (Unverified Allergy, Mild, 02/17/10) Patient Home Medication List Home Medication List Reviewed: Yes (IISS ROLLINS APRN) Albuterol (Proventil Inh) 17 Gm Aerosol, 17 GM INH NEEDED, (Reported) Entered as Reported by: ALENA TRIANA on 02/17/102217 Alprazolam (Alprazolam) 0.5 Mg Tab.rapdis, 0.5 EACH PO HS PRN for SLEEP, (Reported) Entered as Reported by: ALENA CHAVIS on 11/13/131638 Doxycycline Hyclate (Doxycycline Hyclate) 100 Mg Tablet, 100 MG PO BID Prescribed by: ISIS ROLLINS on 11/14/20 123 Glyburide (Diabeta) 2.5 Mg Tablet, 5 MG PO BID, (Reported) Entered as Reported by: ALENA TRIANA on 02/17/102216 Insulin Glargine,Hum.rec.anlog (Basaglar Kwikpen U-100) 100 Unit/1 Ml Insuln.pen, (Reported) Entered as Reported by: RYLEE HERNANDEZ on 09/28/182029 Metronidazole (Flagyl) 500 Mg Tablet, 500 MG PO TID Prescribed by: ISIS ROLLINS on 11/14/20 123 Nebivolol HCl (Bystolic) 20 Mg Tablet, (Reported) Entered as Reported by: RYLEE HERNANDEZ on 09/28/182029 Pantoprazole Sodium (Protonix) 40 Mg Tablet.dr, 40 MG PO DAILY Prescribed by: SHEELA FONTAINE on 09/12/211636 Review of Systems Review of Systems Constitutional: see HPI EENTM: see HPI Respiratory: no symptoms reported Cardiovascular: no symptoms reported Genitourinary: no symptoms reported Musculoskeletal: no symptoms reported Skin: no symptoms reported Psychiatric/Neurological: No Symptoms Reported Hematologic/Lymphatic: No Symptoms Reported Immunological/Allergic: no symptoms reported (ISIS ROLLINS APRN) Past Mttyxlw-Awrfgl-Nstyvk Hx Immunizations Up To Date Tetanus Booster (TDap): More than 5yrs (ISIS ROLLINS APRN) Seasonal Allergies Seasonal Allergies: No (ISIS ROLLINS APRN) Past Medical History Surgeries: Yes (endoscopy and esophageal dilation) Respiratory: Yes Asthma Cardiac: Yes Hypertension Neurological: No Reproductive Disorders: No Genitourinary: No Gastrointestinal: Yes Hiatal Hernia Musculoskeletal: No Endocrine: Yes (DM Type II) Diabetes, Non-Insulin dep HEENT: No Cancer: No Psychosocial: Yes Anxiety Integumentary: No Blood Disorders: No (ISIS ROLLINS APRN) Family Medical History No Pertinent Family Hx (ISIS ROLLINS APRN) Physical Exam Vital Signs Vital Signs - First Documented 09/12/21 13:56 Temp 36.1 Pulse 87 Resp 20 B/P (MAP) 149/89 (109) Pulse Ox 98 O2 Delivery Room Air (KATIE DEMPSEY MD) Vital Signs Capillary Refill : (ISIS ROLLINS APRN) Height, Weight, BMI Height: 5'11.00" Weight: 250lbs. oz. 113.960006vl; 33.00 BMI Method:Stated General Appearance: No Apparent Distress, WD/WN, Other (Unable to swallow own secretions, spitting saliva into a bucket) Eyes: Bilateral Eye Normal Inspection, Bilateral Eye PERRL, Bilateral Eye EOMI Neck: Full Range of Motion, Normal Inspection Respiratory: Normal Breath Sounds, No Accessory Muscle Use, No Respiratory Distress Cardiovascular: Regular Rate, Rhythm, Normal Peripheral Pulses Gastrointestinal: Normal Bowel Sounds, Non Tender, Soft Extremity: Normal Capillary Refill, Normal Inspection Neurologic/Psychiatric: Alert, Oriented x3 Skin: Normal Color, Warm/Dry (ISIS ROLLINS APRN) Progress/Results/Core Measures Suspected Sepsis SIRS Temperature: Pulse: Respiratory Rate: Blood Pressure / Mean: (ISIS ROLLINS APRN) Results/Orders Vital Signs/I&O 09/12/21 13:56 Temp 36.1 Pulse 87 Resp 20 B/P (MAP) 149/89 (109) Pulse Ox 98 O2 Delivery Room Air (KATIE DEMPSEY MD) Vital Signs/I&O Capillary Refill : (ISIS ROLLINS APRN) Departure Communication (Admissions) 1408-spoke with Dr. Fontaine. He like to have endoscopy called in as well as anesthesia and will take him down for EGD. 1706-back from EGD, recovered. Mother in route to pick him up (ISIS ROLLINS APRN) Impression Primary Impression: Esophageal obstruction due to food impaction Disposition: HOME, SELF-CARE Condition: Stable Departure-Patient Inst. Decision time for Depature: 14:03 (ISIS ROLLINS APRN) Referrals: KAYE GARCIA MD (PCP/Family) Primary Care Physician Patient Instructions: Food Obstruction Scripts Pantoprazole Sodium (Protonix) 40 Mg Tablet. 40 MG PO DAILY, #30 TAB 3 Refills Prov: SHEELA FONTAINE DO 09/12/21 ATTENDING PHYSICIAN NOTE: I was physically present as attending physician in the emergency department during the care of this patient, but I was not directly involved in the decision making or delivery of care for this patient. (KATIE DEMPSEY MD) ISIS ROLLINS APRN Sep 12, 2021 14:08 KATIE DEMPSEY MD Sep 14, 2021 13:01
--- NOTE | 2021-09-12 14:47 | Progress Note - Surgery ---
Subjective Date Seen by a Provider: Sep 12, 2021 Time Seen by a Provider: 14:08 Subjective/Events-last exam 55 yo male presents with vomiting and dull pressure/discomfort in his epigastric region which began while he was eating lunch. Pt states he was eating chicken and feels like it got stuck on the way down. He confirms that he has had multiple episodes of dysphagia beginning around 2002 with the most recent episode occurring last fall. He states that generally the food will pass on its own with time, but he did require an endoscopic removal of stuck food about 3yrs ago. He did not follow-up at that time for any additional treatment of his dysphagia. Pt states that nothing seems to improve his current symptoms and that eating or drinking makes it worse. Pt vomited multiple times during the encounter, thick non-blood mucus. Pt has no surgical history to his abdomen and reports T2DM, HTN, asthma and PTSD. He also states that he thinks he may have a pcn allergy. Pt denies ever smoking or heavy drinking of ETOH. He also reports hx of kidney failure in his father and an uncle with stomach CA. Review of Systems General: No Chills, No Night Sweats, No Fatigue; Malaise HEENT: No Head Aches, No Visual Changes, No Eye Pain; Dysphasia Pulmonary: No Dyspnea, No Cough, No Pleuritic Chest Pain Cardiovascular: No: Chest Pain, Palpitations, Orthopnea, Lt Headedness Gastrointestinal: Nausea, Vomiting, Abdominal Pain; No: Diarrhea, Melena, Hematochezia Genitourinary: No Dysuria, No Frequency, No Incontinence, No Hematuria Musculoskeletal: No: neck pain, shoulder pain, arm pain, back pain, leg pain Neurological: No: Weakness, Numbness, Incoordination, Change in speech, Confusion Objective Exam Vital Signs Date Time Temp Pulse Resp B/P (MAP) Pulse Ox O2 Delivery O2 Flow Rate FiO2 09/12/21 13:56 36.1 87 20 149/89 (109) 98 Room Air Capillary Refill : Less Than 3 Seconds General Appearance: No Apparent Distress, WD/WN, Other (Unable to swallow own secretions, spitting saliva into a bucket) Neck: Full Range of Motion, Normal Inspection Respiratory: Normal Breath Sounds, No Accessory Muscle Use, No Respiratory Distress Cardiovascular: Regular Rate, Rhythm, Normal Peripheral Pulses Extremity: Normal Capillary Refill, Normal Inspection Neurologic/Psychiatric: Alert, Oriented x3 Skin: Normal Color, Warm/Dry FRIDA POPE Sep 12, 2021 14:47
--- NOTE | 2021-09-12 14:55 | Consultation - Surgery ---
FRIDA POPE 09/12/21 1455: History of Present Illness History of Present Illness Patient Consulted On(patito/time) 09/12/21 14:51 Date Seen by Provider: Sep 12, 2021 Time Seen by Provider: 14:08 History of Present Illness 55 yo male presents with vomiting and dull pressure/discomfort in his epigastric region which began while he was eating lunch. Pt states he was eating chicken and feels like it got stuck on the way down. He confirms that he has had multiple episodes of dysphagia beginning around 2002 with the most recent episode occurring last fall. He states that generally the food will pass on its own with time, but he did require an endoscopic removal of stuck food about 3yrs ago. He did not follow-up at that time for any additional treatment of his dysphagia. Pt states that nothing seems to improve his current symptoms and that eating or drinking makes it worse. Pt vomited multiple times during the encounter, thick non-blood mucus. Pt has no surgical history to his abdomen and reports T2DM, HTN, asthma and PTSD. He also states that he thinks he may have a pcn allergy. Pt denies ever smoking or heavy drinking of ETOH. He also reports hx of kidney failure in his father and an uncle with stomach CA. Allergies and Home Medications Allergies Coded Allergies: Penicillins (Unverified Allergy, Mild, 02/17/10) Patient Home Medication List Albuterol (Proventil Inh) 17 Gm Aerosol, 17 GM INH NEEDED, (Reported) Entered as Reported by: ALENA TRIANA on 02/17/10 2218 Alprazolam (Alprazolam) 0.5 Mg Tab.rapdis, 0.5 EACH PO HS PRN for SLEEP, (Reported) Entered as Reported by: ALENA CHAVIS on 11/13/13 1639 Doxycycline Hyclate (Doxycycline Hyclate) 100 Mg Tablet, 100 MG PO BID Prescribed by: ISIS DUNLAP on 11/14/20 1231 Glyburide (Diabeta) 2.5 Mg Tablet, 5 MG PO BID, (Reported) Entered as Reported by: ALENA TRIANA on 02/17/10 2217 Insulin Glargine,Hum.rec.anlog (Basaglar Kwikpen U-100) 100 Unit/1 Ml Insuln.pen, (Reported) Entered as Reported by: RYLEE HERNANDEZ on 3/28/19 2030 Metronidazole (Flagyl) 500 Mg Tablet, 500 MG PO TID Prescribed by: ISIS DUNLAP on 11/14/20 1231 Nebivolol HCl (Bystolic) 20 Mg Tablet, (Reported) Entered as Reported by: RYLEE HERNANDEZ on 09/28/182029 Past Jcuxnzw-Skrvzn-Blbbhj Hx Patient Social History Smoking Status: Never a Smoker 2nd Hand Smoke Exposure: No Recent Hopitalizations: No Alcohol Use?: No Have you traveled recently?: No Immunizations Up To Date Tetanus Booster (TDap): More than 5yrs Date of Influenza Vaccine: Apr 10, 2018 Seasonal Allergies Seasonal Allergies: No Surgeries History of Surgeries: Yes (endoscopy and esophageal dilation) Respiratory History of Respiratory Disorde: Yes Respiratory Disorders: Asthma Cardiovascular History of Cardiac Disorders: Yes Cardiac Disorders: Hypertension Neurological History of Neurological Disord: No Reproductive System Hx Reproductive Disorders: No Genitourinary History of Genitourinary Disor: No Gastrointestinal History of Gastrointestinal Di: Yes Gastrointestinal Disorders: Hiatal Hernia Musculoskeletal History of Musculoskeletal Dis: No Endocrine History of Endocrine Disorders: Yes (DM Type II) Endocrine Disorders: Diabetes, Non-Insulin dep HEENT History of HEENT Disorders: No Cancer History of Cancer: No Psychosocial History of Psychiatric Problem: Yes Behavioral Health Disorders: Anxiety, PTSD Integumentary History of Skin or Integumenta: No Blood Transfusions History of Blood Disorders: No Family Medical History Significant Family History: Cancer (Uncle - stomach CA), Other Conditions/Hx (Kidney failure in Father) Review of Systems-General Constitutional: No chills, No diaphoresis, No dizziness, No fever; malaise; No weakness EENTM: No ear pain, No blurred vision, No tearing, No hoarseness, No mouth pain, No mouth swelling, No epistaxis, No throat swelling Respiratory: No cough, No hemoptysis, No phlegm, No short of breath Cardiovascular: No chest pain, No edema, No Hx of Intervention, No palpitations Gastrointestinal: abdominal pain (Epigastric pressure); No diarrhea; dysphagia; No hematemesis, No heartburn; nausea, vomiting Genitourinary: No discharge, No dysuria, No frequency, No hematuria Musculoskeletal: No back pain, No joint pain, No muscle pain, No muscle weakness Skin: No change in color, No change in hair/nails, No hx of skin cancer, No pruritus Psychiatric/Neurological: Anxiety; Denies Numbness, Denies Paresthesia, Denies Weakness; Other (PTSD) Physical Exam-General Problems Physical Exam Vital Signs Vital Signs - First Documented 09/12/21 13:56 Temp 36.1 Pulse 87 Resp 20 B/P (MAP) 149/89 (109) Pulse Ox 98 O2 Delivery Room Air Capillary Refill : Less Than 3 Seconds General Appearance: WD/WN, no apparent distress, obese Eyes: Bilateral Eye PERRL, Bilateral Eye EOMI HEENT: PERRL/EOMI, pharynx normal Neck: non-tender, full range of motion, supple Respiratory: chest non-tender, lungs clear, normal breath sounds, no respiratory distress, no accessory muscle use Cardiovascular: regular rate, rhythm, no edema, no gallop, no JVD, no murmur Peripheral Pulses: 2+ Radial Pulses (R), 2+ Radial Pulses (L) Gastrointestinal: normal bowel sounds, non tender, soft, no organomegaly, no pulsatile mass Rectal: deferred Back: no CVA tenderness, no vertebral tenderness Extremities: normal range of motion, non-tender, normal capillary refill Neurologic/Psychiatric: android ui developer II-XII nml as tested, no motor/sensory deficits, alert, oriented x 3 Reflexes: 2+ Bicep (R), 2+ Bicep (L) Skin: normal color, warm/dry Lymphatic: no adenopathy (Cervical or axillary) Assessment/Plan Assessment/Plan Assessment/Plan Dysphagia HTN T2DM Anxiety Plan: EGD with removal of stuck food out pt F/U to plan for esophageal dilation SHEELA FONTAINE DO 09/12/21 1633: History of Present Illness History of Present Illness History of Present Illness seen and evaluated in ed Isis dunlap requesting consult for food bolus. 55 year old male with history of food boluses, has not followed up after them for dilation. Presents to ER today after eating chicken at 1230. It got stuck. unable to pass secretions and having emesis/spit up secretions. Swallowing makes worse. Nothing better. Epigastric pain pressure type. No radiation of pain. Denies fever sweats chills shortness of breath or chest pain. Allergies and Home Medications Allergies Coded Allergies: Penicillins (Unverified Allergy, Mild, 02/17/10) Patient Home Medication List Home Medication List Reviewed: Yes Albuterol (Proventil Inh) 17 Gm Aerosol, 17 GM INH NEEDED, (Reported) Entered as Reported by: ALENA TRIANA on 02/17/10 2218 Alprazolam (Alprazolam) 0.5 Mg Tab.rapdis, 0.5 EACH PO HS PRN for SLEEP, (Reported) Entered as Reported by: ALENA CHAVIS on 11/13/13 1639 Doxycycline Hyclate (Doxycycline Hyclate) 100 Mg Tablet, 100 MG PO BID Prescribed by: ISIS DUNLAP on 11/14/20 1231 Glyburide (Diabeta) 2.5 Mg Tablet, 5 MG PO BID, (Reported) Entered as Reported by: ALENA TRIANA on 02/17/10 2217 Insulin Glargine,Hum.rec.anlog (Basaglar Kwikpen U-100) 100 Unit/1 Ml Insuln.pen, (Reported) Entered as Reported by: RYLEE HERNANDEZ on 09/28/182029 Metronidazole (Flagyl) 500 Mg Tablet, 500 MG PO TID Prescribed by: ISIS DUNLAP on 11/14/20 123 Nebivolol HCl (Bystolic) 20 Mg Tablet, (Reported) Entered as Reported by: RYLEE HERNANDEZ on 09/28/18 2030 Past Kkqfuhf-Kydvxa-Emsuzp Hx Reviewed Nursing Assessment Reviewed/Agree w Nursing PMH: Yes Family Medical History Significant Family History: No Pertinent Family Hx Review of Systems-General Constitutional: No fever, No weakness EENTM: No ear pain, No blurred vision Respiratory: No cough, No dyspnea on exertion Cardiovascular: No chest pain, No palpitations Gastrointestinal: abdominal pain (Epigastric pressure), nausea, vomiting Genitourinary: No discharge, No hematuria Musculoskeletal: No back pain, No joint pain Skin: No change in color, No change in hair/nails Psychiatric/Neurological: Anxiety; Denies Weakness; Other (PTSD) Physical Exam-General Problems Physical Exam General Appearance: WD/WN, obese, other (spitting stuff up) HEENT: PERRL/EOMI, normal ENT inspection Neck: non-tender, supple Respiratory: chest non-tender, no respiratory distress, no accessory muscle use Cardiovascular: regular rate, rhythm, no JVD Gastrointestinal: soft, tenderness (epigastric - minimal) Rectal: deferred Back: no CVA tenderness, no vertebral tenderness Extremities: normal range of motion, non-tender, normal inspection Neurologic/Psychiatric: no motor/sensory deficits, alert, oriented x 3 Skin: normal color, warm/dry Lymphatic: no adenopathy (Cervical or axillary) Assessment/Plan Assessment/Plan Assessment/Plan Dysphagia secondary to food bolus Epigastric abdominal pain HTN T2DM Anxiety Plan: EGD with all other indicated procedures He understands risks and benefits and wishes to proceed. To OR for EGD Will need follow up outpatient for likely need for dilation Supervisory-Addendum Brief Verification & Attestation Participated in pt care: history, MDM, physical Personally performed: exam, history, MDM, supervision of care Care discussed with: Medical Student Procedures: n/a Results interpretation: Verified all documentation Verification and Attestation of Medical Student E/M Service A medical student performed and documented this service in my presence. I reviewed and verified all information documented by the medical student and made modifications to such information, when appropriate. I personally performed the physical exam and medical decision making. Sheela Fontaine Sep 12, 2021,14:35 FRIDA POPE Sep 12, 2021 14:55 SHEELA FONTAINE DO Sep 12, 2021 16:33
--- NOTE | 2021-09-12 16:36 | Progress Note-Post Operative ---
Post-Operative Progess Note Surgeon (s)/Strap Buckler Machine (s) Surgeon SHEELA FONTAINE DO Strap Buckler Machine: na Pre-Operative Diagnosis Dysphagia, food bolus Post-Operative Diagnosis esophageal stricutre with food bolus Procedure & Operative Findings Date of Procedure 09/12/21 Procedure Performed/Findings egd c removal esophageal food bolus Anesthesia Type general Estimated Blood Loss Estimated blood loss (mL): none Specimens/Packing Specimens Removed none SHEELA FONTAINE DO Sep 12, 2021 16:36
--- NOTE | 2021-09-12 16:38 | Discharge Inst-Simple/Standard ---
Discharge Inst-Standard Discharge Medications New, Converted or Re-Newed RX: Transmitted to Pharmacy Patient Instructions/Follow Up Plan of Care/Instructions/FU: 2 weeks Kathy Activity as Tolerated: Yes Discharge Diet: Liquid Diet (2 days then advance as tolerates) SHEELA FONTAINE DO Sep 12, 2021 16:38
--- NOTE | 2021-09-12 17:09 | OPERATIVE REPORT ---
DATE OF SERVICE: 09/12/2021 PREOPERATIVE DIAGNOSIS: Dysphagia, food bolus. 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 PROCEDURE: EGD with removal of esophageal food bolus. SURGEON: Sheela Chavez DO ANESTHESIA: General. ESTIMATED BLOOD LOSS: None. COMPLICATIONS: None. INDICATIONS: The patient is a 55-year-old male with history of food boluses. He presented to the Emergency Department with food bolus, unable to keep secretions down and having some nausea and emesis. He has a little bit of epigastric abdominal pain. He is eating chicken approximately 12:30 and this did not go down. The patient went to the Emergency Department for further evaluation and we discussed risks and benefits of having EGD with removal of food bolus and all other indicated procedures. He understands and wishes to proceed. Consent was signed in the chart. DESCRIPTION OF PROCEDURE: The patient was taken to the operating suite. He was intubated. Timeout was performed. Scope was inserted in the mouth, down the esophagus, which had a lot of secretions within it, which was then suctioned. A lot of particulate of food particles present, which were able to be suctioned. As we continued down to the distal portion of esophagus, there was a large food bolus appears to be chicken. Prong forceps Martin Net and snare were all used to begin removing pieces of this until the entire obstruction was relieved, and multiple insertions and retractions were made using those instrumentations to remove it. Scope was then inserted down the esophagus into the stomach and into the duodenum without difficulty. There were slight erythematous changes within the duodenum. No polyps, masses, or ulcerations. Scope was slowly retracted back into the stomach, further insufflated. Still food particulates within the stomach. Scope was retroflexed noting no other pathology. It was able to be visualized. Scope was returned to its normal position, slowly withdrawn to distal esophagus noting the stricture. Scope was able to pass through this, no problem, but does have some narrowing due to the food bolus some irritation through this area is present. Scope was slowly retracted back to completely remove, noting no other pathology. The patient tolerated the procedure well without any complications, taken to recovery room in stable condition. RECOMMENDATIONS: We would recommend repeat EGD in a few weeks in order to evaluate and possibly dilate this area of stricture. Also, there is a presence of maybe a small Zenker's diverticulum, but difficult to visualize. Sof if problematic, we would consider getting a barium swallow. The patient will be started on Protonix 40 mg daily. He will follow up in the office in 2 weeks. We would stay on liquid diet for 2 days and slowly advance as tolerates. Job ID: [id number] DocumentID: [id number] Dictated Date: 09/12/2021 16:43:08 Stone Hand Date: 09/12/2021 17:08:10 Dictated By: SHEELA CHAVEZ DO
--- NOTE | 2021-09-13 13:51 | Anesthesia-General Post-Op ---
General Patient Condition Mental Status/LOC: Same as Preop Cardiovascular: Satisfactory Nausea/Vomiting: Absent Respiratory: Satisfactory Pain: Controlled Complications: Absent Post Op Complications Complications None Follow Up Care/Instructions Patient Instructions None needed. Anesthesia/Patient Condition Patient Condition Patient is doing well, no complaints, stable vital signs, no apparent adverse anesthesia problems. No complications reported per nursing. ROSE BRINK CRNA Sep 13, 2021 13:51
== END | disposition home or self-care (01) ==
LOC: EDUNIT# 13:47 → ER 13:49 → SDC 14:12
PROVIDERS: ATTEND Surgery
DX: T18.128A Food in esophagus causing other injury, initial encounter (principal); K22.2 Esophageal obstruction; K31.89 Other diseases of stomach and duodenum; I10 Essential (primary) hypertension; E11.9 Type 2 diabetes mellitus without complications; F41.9 Anxiety disorder, unspecified; Z79.899 Other long term (current) drug therapy; Z79.4 Long term (current) use of insulin; Z79.84 Long term (current) use of oral hypoglycemic drugs

== ENCOUNTER 2022-01-17 14:46 | Day surgery (SDC) | payer OTHER ==
[~2022-01-17] VITALS: Ht 180 cm; Wt 112.5 kg
[~2022-01-17 14:46] MED LIST changes: -ANTACID SUSP 30 ML UDC (MYLANTA) PO ONE; -INSU100I34; +INSU100I34 SQ; -LACTATED RINGERS 1,000 ML IV PRN; -LIDOCAINE 2% VISCOUS 15 ML UDC PO ONE; -LIDOCAINE PF 2% 5 ML (XYLOCAINE) VIAL ONE; -MIDAZOLAM 2 MG/2 ML (VERSED) VIAL ONE; -ONDANSETRON 4 MG/2 ML (SDV) Z0FRAN ONE; -SEVOFLURANE (ULTANE) 15 ML INHAL SOLN ONE; -SUCCINYLCHOLINE INJ 20 MG/1 ML 10 ML VIAL ONE; -proPOfol 200 MG/20 ML (DIPRIVAN) VIAL IV ONE
--- NOTE | 2022-01-17 15:01 | ED Abdominal Pain ---
General Chief Complaint: Foreign Body Stated Complaint: HIATAL HERNIA PAIN Source of Information: Patient Exam Limitations: No Limitations History of Present Illness Date Seen by Provider: Jan 17, 2022 Time Seen by Provider: 14:50 Initial Comments Patient is a 56-year-old male who presents to the emergency department today with a chief complaint of epigastric, lower chest fullness. He states that at approximately 115 today he was eating a hot dog and felt like a portion of it got "stuck" in his lower esophagus. He has had multiple prior episodes that are similar. He has a history of a hiatal hernia as well as esophageal stricture. He has been scoped a few times by either Dr. Gannon or Dr. Fontaine he cannot r emember which. He states he was here a few months ago with similar complaints. He states that he can handle his own secretions but it intensifies the discomfort in his lower chest. He has vomited a couple of times pieces of hotdog. He continues to feel like something is stuck. He is not actually nauseated. He is not having abdominal pain just discomfort. No recent diarrhea or bloody or black stools. No problems with urination. No fevers chills or URI symptoms. 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 All other review of systems reviewed and negative except as stated. Timing/Duration: 1-3 Hours Severity/Quality: Moderate Location: Epigastric Radiation: No Radiation Activities at Onset: Other (Eating) Associated Symptoms: Nausea/Vomiting Allergies and Home Medications Allergies Coded Allergies: Penicillins (Unverified Allergy, Mild, 02/17/10) Patient Home Medication List Home Medication List Reviewed: Yes Albuterol Sulfate (Ventolin Hfa) 90 Mcg Hfa.aer.ad, 1 PUFF PO QID PRN for SHORTNESS OF BREATH, (Reported) Entered as Reported by: AMBREEN HAWTHORNE on 01/18/22 120 Last Action: Reviewed Alprazolam (Alprazolam) 0.5 Mg Tablet, 0.5 MG PO BID, (Reported) Entered as Reported by: AMBREEN HAWTHORNE on 01/18/22 1204 Last Action: Reviewed Amlodipine Besylate (Amlodipine Besylate) 10 Mg Tablet, 10 MG PO DAILY, (Reported) Entered as Reported by: AMBREEN HAWTHORNE on 01/18/22 1203 Last Action: Reviewed Atorvastatin Calcium (Atorvastatin Calcium) 20 Mg Tablet, 20 MG PO DAILY, (Reported) Entered as Reported by: AMBREEN HAWTHORNE on 01/18/22 1208 Last Action: Reviewed Glimepiride (Glimepiride) 4 Mg Tablet, 4 MG PO DAILY, (Reported) Entered as Reported by: AMBREEN HAWTHORNE on 01/18/22 1205 Last Action: Reviewed Insulin Glargine,Hum.rec.anlog (Basaglar Kwikpen U-100) 100 Unit/Ml (3 Ml) Insuln.pen, 40 UNIT SQ HS, (Reported) Entered as Reported by: AMBREEN HAWTHORNE on 01/18/22 1159 Last Action: Reviewed Lisinopril/Hydrochlorothiazide (Lisinopril-Hctz 20-12.5 mg Tab) 20 Mg-12.5 Mg Tablet, 1 EACH PO DAILY, (Reported) Entered as Reported by: AMBREEN HAWTHORNE on 01/18/22 1206 Last Action: Reviewed Metformin HCl (Metformin HCl) 1,000 Mg Tablet, 1,000 MG PO BID, (Reported) Entered as Reported by: AMBREEN HAWTHORNE on 01/18/22 1204 Last Action: Reviewed Metoprolol Succinate (Metoprolol Succinate) 50 Mg Tab.er.24h, 50 MG PO DAILY, (Reported) Entered as Reported by: AMBREEN HAWTHORNE on 01/18/22 1200 Last Action: Reviewed Omeprazole (Omeprazole) 40 Mg Capsule.dr, 40 MG PO DAILY Prescribed by: KAYLA MALDONADO on 01/17/22 2030 Last Action: Reviewed Discontinued Medications Doxycycline Hyclate (Doxycycline Hyclate) 100 Mg Tablet, 100 MG PO BID Discontinued Reason: No Longer Taking Prescribed by: ISIS ROLLINS on 11/14/20 1231 Last Action: Discontinued Insulin Glargine,Hum.rec.anlog (Basaglar Kwikpen U-100) 100 Unit/Ml (3 Ml) Insuln.pen, 40-50 UNIT SQ HS Discontinued Reason: Duplicate Order Prescribed by: ESTEBAN COBIAN on 01/17/22 181 Last Action: Discontinued Metronidazole (Flagyl) 500 Mg Tablet, 500 MG PO TID Discontinued Reason: No Longer Taking Prescribed by: ISIS ROLLINS on 11/14/20 1231 Last Action: Discontinued Nebivolol HCl (Bystolic) 20 Mg Tablet, (Reported) Discontinued Reason: No Longer Taking Entered as Reported by: RYLEE HERNANDEZ on 09/28/182029 Last Action: Discontinued Pantoprazole Sodium (Protonix) 40 Mg Tablet.dr, 40 MG PO DAILY Discontinued Reason: No Longer Taking Prescribed by: SHEELA FONTAINE on 09/12/21 1637 Last Action: Discontinued Review of Systems Review of Systems Constitutional: see HPI EENTM: No Symptoms Reported Respiratory: No Symptoms Reported Cardiovascular: Chest Pain (Lower chest/epigastric fullness) Gastrointestinal: Abdominal Pain, Nausea, Vomiting Genitourinary: No Symptoms Reported Skin: no symptoms reported Past Imaedqc-Fhhghu-Smjyph Hx Patient Social History Tobacco Use?: No Substance use?: No Alcohol Use?: No Pt feels they are or have been: Yes Immunizations Up To Date Tetanus Booster (TDap): More than 5yrs First/Initial COVID19 Vaccinat: 2020 Second COVID19 Vaccination Daron: 2020 Third COVID19 Vaccination Date: N/A Seasonal Allergies Seasonal Allergies: No Past Medical History Surgery/Hospitalization HX: pmh: htn, dm2, asthma, hiatal hernia Surgeries: Yes (endoscopy and esophageal dilation) Respiratory: Yes Asthma Currently Using CPAP: No Currently Using BIPAP: No Cardiac: Yes Hypertension Neurological: No Reproductive Disorders: No Genitourinary: No Gastrointestinal: Yes Hiatal Hernia Musculoskeletal: No Endocrine: Yes (DM Type II) Diabetes, Non-Insulin dep HEENT: No Cancer: No Psychosocial: Yes Anxiety, PTSD Integumentary: No Blood Disorders: No Family Medical History No Pertinent Family Hx Physical Exam Vital Signs Vital Signs - First Documented 01/17/22 14:56 Temp 36.5 Pulse 88 Resp 16 B/P (MAP) 156/87 (110) Pulse Ox 96 Capillary Refill : Height/Weight/BMI Height: 5'11.00" Weight: 250lbs. oz. 113.676370nn; 35.00 BMI Method:Stated General Appearance: WD/WN, no apparent distress HEENT: PERRL/EOMI Neck: normal inspection Respiratory: lungs clear, normal breath sounds, no respiratory distress, no accessory muscle use Cardiovascular: regular rate, rhythm Gastrointestinal: normal bowel sounds, non tender, soft Extremities: normal range of motion Neurologic/Psychiatric: alert, normal mood/affect, oriented x 3 Skin: normal color, warm/dry Progress/Results/Core Measures Results/Orders My Orders Orders - DOROTHEA DRAPER MD Ed Iv/Invasive Line Start (01/17/22 15:01) Glucagon Emergency Kit (Glucagon Emergen (01/17/22 15:15) Medications Given in ED Current Medications Medications Dose Ordered Sig/Janina Route Start Time Stop Time Status Last Admin Dose Admin Glucagon 1 mg ONCE ONCE IV 01/17/22 15:15 01/17/22 15:16 DC 01/17/22 15:16 1 MG Vital Signs/I&O 01/17/22 14:56 Temp 36.5 Pulse 88 Resp 16 B/P (MAP) 156/87 (110) Pulse Ox 96 Progress Progress Note : Time: 16:06 Progress Note No improvement after glucagon. Departure Communication (Admissions) discussed with Dr Maldonado Impression Primary Impression: Esophageal obstruction due to food impaction Disposition: ADMITTED INPATIENT Condition: Stable Admissions Decision to Admit Reason: Admit from ER (General) Decision to Admit/Date: Jan 17, 2022 Time/Decision to Admit Time: 15:30 Departure-Patient Inst. Referrals: KAYE GARCIA MD (PCP/Family) Primary Care Physician Scripts Omeprazole (Omeprazole) 40 Mg Capsule. 40 MG PO DAILY, #90 CAP Prov: KAYLA MALDONADO MD 01/17/22 DOROTHEA DRAPER MD Jan 17, 2022 15:01
[2022-01-17] MEDS ORDERED: GLUCAGON EMERGENCY 1 MG/KIT IV ONE ×2 (15:15→16:30)
[2022-01-17] MEDS ORDERED: ONDANSETRON 4 MG/2 ML (SDV) Z0FRAN IVP ONE (17:30)
[2022-01-17] MEDS ORDERED: fentaNYL INJ 100 MCG/2 ML AMP IVP ONE (17:30)
[2022-01-17] MEDS ORDERED: fentaNYL INJ 100 MCG/2 ML AMP IVP PRN (17:45)
[2022-01-17] MEDS ORDERED: ONDANSETRON 4 MG/2 ML (SDV) Z0FRAN IVP PRN (17:45)
--- NOTE | 2022-01-17 17:52 | Diagnostic Imaging Report ---
INDICATION: Something stuck in throat. Chest pain. FINDINGS: The lungs are clear. No failure, effusion or pneumothorax. IMPRESSION: No acute appearing abnormality. No retained opaque foreign body. Dictated by: Dictated on workstation # [id number]
[2022-01-17] MEDS ORDERED: NS IV 1000 ML 1,000 ML ONE (18:09)
[2022-01-17] MEDS ORDERED: METO50TA7 PO (18:12)
[2022-01-17] MEDS ORDERED: AMLO-251 PO (18:12)
[2022-01-17] MEDS ORDERED: ATOR20TA66 PO (18:12)
[2022-01-17] MEDS ORDERED: LISI1TAB46 PO (18:12)
[2022-01-17] MEDS ORDERED: INSU100I34 SQ (18:13)
[2022-01-17] MEDS ORDERED: METF-399 PO (18:14)
[2022-01-17] MEDS: NS IV 1000 ML 1,000 ML IV SCH (18:16)
[2022-01-17 19:14] VITALS: BP 125/75
--- NOTE | 2022-01-17 20:29 | Progress Note-Pre Operative ---
Pre-Operative Progress Note H&P Reviewed The H&P was reviewed, patient examined and no changes noted. Date Seen by Provider: Jan 17, 2022 Time Seen by Provider: 21:00 Date H&P Reviewed: Jan 17, 2022 Time H&P Reviewed: 21:00 Pre-Operative Diagnosis: GERD, dysphagia, hx esoph stricture and hiatal hernia KAYLA CAZARES MD Jan 17, 2022 20:29
[2022-01-17] MEDS ORDERED: PANT40TA2 PO (20:30)
[2022-01-17] MEDS: inSUlin ASPART (NovoLOG) 1 UNIT/0.01 ML (CHARGE PER UNIT) SC SCH (20:30)
[2022-01-17] MEDS ORDERED: OMEP40CA6 PO (20:30)
--- NOTE | 2022-01-17 20:31 | Discharge Inst-Surgical ---
D/C Lap Instructions-KIDO New, Converted, or Re-Newed RX: RX on Chart Follow Up Appt in 4 weeks Activity as tolerated High Fiber Diet 25g or more per day Avoid Alcohol, Caffeine, Spicy [place] and Acid foods. Drink 64 fluid oz or more of fluids per day. Symptoms to Report: Fever over 101 degree F, Nausea/Vomiting If any problems/questions: Contact your physician or go to Emergency Room KAYLA CAZARES MD Jan 17, 2022 20:31
--- NOTE | 2022-01-17 20:56 | HISTORY AND PHYSICAL ---
DATE OF SERVICE: ATTENDING PRIMARY CARE PHYSICIAN: Dr. Jose Qiu. HISTORY OF PRESENT ILLNESS: The patient is a 56-year-old male who presented to the Emergency Department with dysphagia. He reports after eating a hot dog he felt a pressure sensation in the substernal region and he tried to drink water and the pressure would rise similar to a common up to his neck region. He has had multiple episodes of this before in the past and has had previous EGDs in the past as well, and was found to have hiatal hernia as well as stricture. He states that he is not able to eat or drink, however, is able to swallow his own secretions. He does not report any jonel episodes of nausea, no vomiting as well as no coffee-ground emesis. He states that his bowel movements have been normal. He also does report a history of gastroesophageal reflux disease. PAST MEDICAL HISTORY: Gastroesophageal reflux disease with history of hiatal hernia and esophageal stricture, asthma, diabetes, hypertension, PTSD. PAST SURGICAL HISTORY: None. ALLERGIES: PENICILLIN. MEDICATIONS: Albuterol 17 grams p.r.n., alprazolam 0.5 mg p.r.n., doxycycline 100 mg b.i.d., glyburide 2.5 mg b.i.d., glargine insulin daily, metronidazole 500 mg t.i.d., nebivolol 20 mg daily, Protonix 40 mg daily. SOCIAL HISTORY: Negative smoke, negative alcohol. FAMILY HISTORY: Noncontributory. VITAL SIGNS: Temperature 36.4, blood pressure 125/75, pulse 91, respirations 20, pulse ox 97% on room air. REVIEW OF SYSTEMS: Well-nourished male currently in no acute distress. He is not experiencing any shortness of breath or difficulty in breathing. No cough or sputum production. He does have substernal chest pressure sensation; however, not severe and is able to swallow his own salivary secretions. No hematemesis, no coffee-ground emesis. No diarrhea, no red blood per rectum, no dark tarry stools. No fever, chills, no recent inadvertent weight loss. All other review of systems negative. Physical examination will be ascertained upon seeing the patient in the a.m. ASSESSMENT AND PLAN: A 56-year-old male with dysphagia, possible esophageal foreign body as well as known history of gastroesophageal reflux disease, esophageal stricture as well as hiatal hernia. We will admit him, place him on a PPI acid reducers as well as schedule him for an EGD, possible foreign body removal as well as biopsies as appropriate and balloon dilatation of esophageal stricture. We will also evaluate the type and size of the hiatal hernia and if this is significant, he may be a candidate for hiatal hernia repair once the stricture is resolved. Job ID: [id number] DocumentID: [id number] Dictated Date: 01/17/2022 20:27:42 Chief Gauger Date: 01/17/2022 20:56:38 Dictated By: KAYLA CAZRAES MD [facility]
[2022-01-17] MEDS: PANTOPRAZOLE 40 MG (PROTONIX) VIAL IV SCH (21:35)
[2022-01-18] VITALS (13 sets, daily range): BP systolic 92–169; BP diastolic 58–85
[2022-01-18] MEDS: NS IV 1000 ML 1,000 ML IV SCH ×2 (03:40→03:53)
[2022-01-18] MEDS: inSUlin ASPART (NovoLOG) 1 UNIT/0.01 ML (CHARGE PER UNIT) SC SCH ×3 (05:31→15:57)
[2022-01-18] MEDS: PANTOPRAZOLE 40 MG (PROTONIX) VIAL IV SCH (09:38)
[2022-01-18] MEDS ORDERED: INSU100I34 SQ (11:59)
[2022-01-18] MEDS ORDERED: METO50TA7 PO (12:00)
[2022-01-18] MEDS ORDERED: AMLO-251 PO (12:03)
[2022-01-18] MEDS ORDERED: ALPR0.5T7 PO (12:04)
[2022-01-18] MEDS ORDERED: METF-399 PO (12:04)
[2022-01-18] MEDS ORDERED: GLIM4TAB5 PO (12:05)
[2022-01-18] MEDS ORDERED: LISI1TAB46 PO (12:06)
[2022-01-18] MEDS ORDERED: ALBU18HF2 PO (12:06)
[2022-01-18] MEDS ORDERED: ATOR20TA66 PO (12:08)
--- NOTE | 2022-01-18 13:19 | Anesthesia-General Post-Op ---
General Patient Condition Mental Status/LOC: Same as Preop Cardiovascular: Satisfactory Nausea/Vomiting: Absent Respiratory: Satisfactory Pain: Controlled Complications: Absent Post Op Complications Complications None Follow Up Care/Instructions Patient Instructions None needed. Anesthesia/Patient Condition Patient Condition Patient is doing well, no complaints, stable vital signs, no apparent adverse anesthesia problems. No complications reported per nursing. JESSE BARBOUR CRNA Jan 18, 2022 13:19
--- NOTE | 2022-01-18 13:20 | Progress Note ---
Standard Progress Note Progress Notes/Assess & Plan Date Seen by a Provider: Jan 18, 2022 Time Seen by a Provider: 11:00 Progress/Assessment & Plan doing better today. better able to swallow. PE: chest-good bs bilat heart-reg heent-no scleral icterus. ext-no LE edema, neg homans abd-soft, nt/nd skin-warm/dry KAYLA CAZARES MD Jan 18, 2022 13:20
--- NOTE | 2022-01-18 13:22 | Progress Note-Post Operative ---
Post-Operative Progess Note Surgeon (s)/Avionics Systems Engineer (s) Surgeon KAYLA CAZARES MD Avionics Systems Engineer: none Pre-Operative Diagnosis GERD, dysphagia, hx esoph stricture and hiatal hernia Post-Operative Diagnosis reflux esophagitis(grade C), distal esophageal stricture, small HH(1cm), moderate gastritis. Procedure & Operative Findings Date of Procedure 01/18/22 Procedure Performed/Findings EGD with bx and balloon dilatation. Anesthesia Type mac Estimated Blood Loss Estimated blood loss (mL): minimal Specimens/Packing Specimens Removed ge jxn, antrum KAYLA CAZARES MD Jan 18, 2022 13:22
--- NOTE | 2022-01-18 22:04 | OPERATIVE REPORT ---
DATE OF SERVICE: 01/18/2022 ATTENDING PRIMARY CARE PHYSICIAN: Dr. Jose Qiu. PREOPERATIVE DIAGNOSES: Dysphagia, possible esophageal foreign body, gastroesophageal reflux disease, history of distal esophageal stricture. POSTOPERATIVE DIAGNOSES: Reflux esophagitis, Altus grade C with a distal esophageal stricture, small hiatal hernia approximately 1 cm in size, moderate gastritis, no distal obstructions. PROCEDURE: EGD with biopsy and balloon dilatation. SURGEON: Kayla Cazares MD ANESTHESIA: General endotracheal. ESTIMATED BLOOD LOSS: Minimal. FINDINGS: Reflux esophagitis, Altus grade C with a distal esophageal stricture, small hiatal hernia approximately 1 cm in size, moderate gastritis, no distal obstructions. DISPOSITION: The patient tolerated the procedure well. INDICATIONS: The patient is a 56-year-old male who presented to the Emergency Department with dysphagia. He reports that he was eating a hot dog and felt a pressure sensation in the substernal region, tried to drink water and the pressure would rise to the neck region. He has had multiple episodes of this before in the past and has had previous EGDs in the past and was found to have a hiatal hernia as well as a stricture. He states that since the event this time around, it has been difficult to eat or drink. However, he is not able to swallow his own secretions. He does not report any jonel episodes of nausea and vomiting as well as no hematemesis, no coffee ground emesis. DESCRIPTION OF PROCEDURE: The patient was brought to the operating room, laid in the left lateral decubitus position. After adequate IV pain and sedative medications and general endotracheal intubation, the mouthpiece was applied. The endoscope was placed in the mouth, visualizing the pharynx and hypopharyngeal region. Vocal cords, epiglottis and vallecula identified and appeared to be normal. The endoscope was then gently intubated at the esophageal opening, esophagus insufflated. The endoscope was then advanced through the first, second and third portions of esophagus at the level of the GE junction, a reflux esophagitis, Altus grade C identified. There was no esophageal foreign body remaining. There was also distal esophageal stricture. A biopsy was taken with forceps with visualization of good hemostasis. The endoscope was then advanced in the stomach and endoscope retroflexed, visualizing a small hiatal hernia approximately 1 cm in size. There was a moderate severity gastritis, which was more diffuse. No formal ulcerations, polyps, or any neoplasms. A biopsy was taken of the antrum to rule out H. pylori with visualization of good hemostasis. The endoscope was then advanced to the pylorus and the first and second portions of the duodenum, which appeared normal with no distal obstructions. The balloon was then placed in the stomach and pulled back to the area of stricture. We then proceeded in a graded stepwise fashion from 2, 4, then eventually 6 atmospheres of pressure with moderate resistance or 20 mm in luminal diameter and left this in place for approximately 60 seconds. The balloon was then desufflated and removed with visualization of good hemostasis as well as no mucosal tears. The endoscope was then slowly withdrawn while taking a second look and suctioning of residual air with no additional findings. The patient tolerated the procedure well. We will recommend the necessary lifestyle and dietary accommodation including small and more frequent meals, avoiding to eating at night as well as head elevation while lying supine. He also needs to avoid caffeinated beverages, spicy, greasy and acidic foods. He is currently on Protonix and for the next three months we will also add omeprazole 40 mg daily to be taken at a separate time during the day. If he is feeling well, he may proceed with discontinuation of the omeprazole. If he does have recurrent sensations of dysphagia, we will have him follow up in the office to schedule him as an outpatient for repeat dilatation. Job ID: [id number] DocumentID: [id number] Dictated Date: 01/18/2022 13:29:27 Photo Mask Inspector Date: 01/18/2022 22:04:28 Dictated By: KAYLA CAZARES MD
== END 2022-01-18 17:20 | disposition home or self-care (01) ==
LOC: EDUNIT# 14:46 → ER 14:48 → UNDOADMOB 16:23 → 4TH 16:23 → SDC 16:23 → 4TH 16:23 → SDC 01-18 17:20 → UNDODISOB 01-18 17:20
PROVIDERS: ATTEND Surgery
DX: K21.00 Gastro-esophageal reflux disease with esophagitis, without bleeding (principal); K31.89 Other diseases of stomach and duodenum; T18.128A Food in esophagus causing other injury, initial encounter; K44.9 Diaphragmatic hernia without obstruction or gangrene; K29.70 Gastritis, unspecified, without bleeding
CPT/HCPCS: 71045; 82947; 87081; 88305; 96374; 96375; 96376

== ENCOUNTER 2022-12-16 19:44 | Emergency (ER) | payer OTHER ==
[~2022-12-16] VITALS: Ht 180 cm; Wt 112.0 kg
[~2022-12-16 19:44] MED LIST changes: +ALBU18HF2 PO; +ALPR0.5T7 PO; +AMLO-251 PO; +ATOR20TA66 PO; +GLIM4TAB5 PO; +LISI1TAB46 PO; +METF-399 PO; +METO50TA7 PO; +OMEP40CA6 PO
--- NOTE | 2022-12-16 20:28 | Diagnostic Imaging Report ---
CLINICAL INDICATIONS: Patient with chest pain. EXAM: Portable chest x-ray upright view. COMPARISON: Chest x-ray dated 01/17/2022. FINDINGS: Lungs/pleura: There is mild left basilar atelectasis and minimal discoid atelectasis in right lung base. Otherwise, lungs are clear. Azygous lobe is again seen. There is no pneumothorax. There is no pleural effusion. Mediastinum: Unremarkable. Pulmonary vasculature: Unremarkable. Heart: Unremarkable. Bones/extrathoracic soft tissue: There are degenerative spurs involving the thoracic spine. IMPRESSION: There is mild bibasilar atelectasis. There is no radiographic evidence of acute cardiopulmonary process. Dictated by: Dictated on workstation # [id number]
--- NOTE | 2022-12-16 20:32 | ED General ---
General Chief Complaint: General Problems/Pain Stated Complaint: BODYACHES/CHILLS/FEVER Nursing Triage Note: PT STATES FEVER, BODY ACHES, CHILLS, DIARRHEA FOR THE PAST 24 HRS. 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 TOOK TYLENOL ABOUT 4 HRS AGO, 37.2 AT TRIAGE Allergies and Home Medications Allergies Coded Allergies: Penicillins (Unverified Allergy, Mild, 02/17/10) Patient Home Medication List Albuterol Sulfate (Ventolin Hfa) 90 Mcg Hfa.aer.ad, 1 PUFF PO QID PRN for SHORTNESS OF BREATH, (Reported) Entered as Reported by: AMBREEN HAWTHORNE on 01/18/22 1206 Alprazolam (Alprazolam) 0.5 Mg Tablet, 0.5 MG PO BID, (Reported) Entered as Reported by: AMBREEN HAWTHORNE on 01/18/22 1204 Amlodipine Besylate (Amlodipine Besylate) 10 Mg Tablet, 10 MG PO DAILY, (Reported) Entered as Reported by: AMBREEN HAWTHORNE on 01/18/22 1203 Atorvastatin Calcium (Atorvastatin Calcium) 20 Mg Tablet, 20 MG PO DAILY, (Reported) Entered as Reported by: AMBREEN HAWTHORNE on 01/18/22 1208 Glimepiride (Glimepiride) 4 Mg Tablet, 4 MG PO DAILY, (Reported) Entered as Reported by: AMBREEN HAWTHORNE on 01/18/22 1205 Insulin Glargine,Hum.rec.anlog (Basaglar Kwikpen U-100) 100 Unit/Ml (3 Ml) Insuln.pen, 40 UNIT SQ HS, (Reported) Entered as Reported by: AMBREEN HAWTHORNE on 01/18/22 1159 Lisinopril/Hydrochlorothiazide (Lisinopril-Hctz 20-12.5 mg Tab) 20 Mg-12.5 Mg Tablet, 1 EACH PO DAILY, (Reported) Entered as Reported by: AMBREEN HAWTHORNE on 01/18/22 1206 Metformin HCl (Metformin HCl) 1,000 Mg Tablet, 1,000 MG PO BID, (Reported) Entered as Reported by: AMBREEN HAWTHORNE on 01/18/22 1204 Metoprolol Succinate (Metoprolol Succinate) 50 Mg Tab.er.24h, 50 MG PO DAILY, (Reported) Entered as Reported by: AMBREEN HAWTHORNE on 01/18/22 1200 Omeprazole (Omeprazole) 40 Mg Capsule.dr 40 MG PO DAILY Prescribed by: KAYLA CAZARES on 01/17/222029 Past Tciqgqb-Boiqhe-Gpemfy Hx Patient Social History Tobacco Use?: No Substance use?: No Alcohol Use?: No Immunizations Up To Date Tetanus Booster (TDap): More than 5yrs First/Initial COVID19 Vaccinat: 2020 Second COVID19 Vaccination Daron: 2020 Third COVID19 Vaccination Date: N/A Seasonal Allergies Seasonal Allergies: No Past Medical History Surgery/Hospitalization HX: pmh: htn, dm2, asthma, hiatal hernia Surgeries: Yes (endoscopy and esophageal dilation) Respiratory: Yes Asthma Currently Using CPAP: No Currently Using BIPAP: No Cardiac: Yes Hypertension Neurological: No Reproductive Disorders: No Genitourinary: No Gastrointestinal: Yes Hiatal Hernia Musculoskeletal: No Endocrine: Yes (DM Type II) Diabetes, Non-Insulin dep HEENT: No Cancer: No Psychosocial: Yes Anxiety, PTSD Integumentary: No Blood Disorders: No Family Medical History No Pertinent Family Hx Physical Exam Vital Signs Vital Signs - First Documented 12/16/22 19:54 Temp 37.2 Pulse 95 Resp 18 B/P (MAP) 148/87 (107) Pulse Ox 96 O2 Delivery Room Air Capillary Refill : Less Than 3 Seconds Height, Weight, BMI Height: 5'11.00" Weight: 250lbs. oz. 113.838653lo; 34.00 BMI Method:Stated Progress/Results/Core Measures Suspected Sepsis SIRS Temperature: Pulse: 95 Respiratory Rate: 18 Blood Pressure 148 /87 Mean: 107 Results/Orders Lab Results Laboratory Tests Test 12/16/22 20:03 Range/Units Influenza Type A (RT-PCR) Not Detected Not Detecte Influenza Type B (RT-PCR) Not Detected Not Detecte SARS-CoV-2 RNA (RT-PCR) Not Detected Not Detecte My Orders Orders - KAREN MELISSA DO Rapid Strep A Screen (12/16/22 20:01) Covid 19 Inhouse Test (12/16/22 20:01) Influenza A And B By Pcr (12/16/22 20:01) Chest 1 View, Ap/Pa Only (12/16/22 20:07) Vital Signs/I&O 12/16/22 19:54 Temp 37.2 Pulse 95 Resp 18 B/P (MAP) 148/87 (107) Pulse Ox 96 O2 Delivery Room Air Capillary Refill : Less Than 3 Seconds Blood Pressure Mean: 107 Diagnostic Imaging Comments CXR--PER RADIOLOGIST REPORT AT 2031 FINDINGS: Lungs/pleura: There is mild left basilar atelectasis and minimal discoid atelectasis in right lung base. Otherwise, lungs are clear. Azygous lobe is again seen. There is no pneumothorax. There is no pleural effusion. Mediastinum: Unremarkable. Pulmonary vasculature: Unremarkable. Heart: Unremarkable. Bones/extrathoracic soft tissue: There are degenerative spurs involving the thoracic spine. IMPRESSION: There is mild bibasilar atelectasis. There is no radiographic evidence of acute cardiopulmonary process. Reviewed: Reviewed by Me Departure Impression Primary Impression: Nonspecific syndrome suggestive of viral illness Disposition: HOME, SELF-CARE Condition: Stable Departure-Patient Inst. Decision time for Depature: 21:13 Referrals: KAYE GARCIA MD (PCP/Family) Primary Care Physician Patient Instructions: Viral Syndrome (DC) Add. Discharge Instructions: HOME, REST LOTS OF FLUIDS TYLENOL AND MOTRIN NEEDED FOR PAIN FOLLOW UP WITH YOUR DR IN 2-3 DAYS FOR FURTHER CARE, RETURN TO ER IF SYMPTOMS Faby LEÓN All discharge instructions reviewed with patient and/or family. Voiced understanding. Work/School Note: Work Release Form Date Seen in the Emergency Department: Dec 16, 2022 Return to Work: Dec 18, 2022 Restrictions: No Restrictions KAREN MELISSA DO Dec 16, 2022 20:32
[2022-12-16 21:20] VITALS: BP 140/92
== END 2022-12-16 21:20 | disposition home or self-care (01) ==
LOC: EDUNIT# 19:44 → ER 19:47
DX: R50.9 Fever, unspecified (principal); R19.7 Diarrhea, unspecified; R52 Pain, unspecified; Z20.822 Contact with and (suspected) exposure to COVID-19
CPT/HCPCS: 71045; 87636

== ENCOUNTER 2022-12-22 22:35 | Emergency (ER) | payer OTHER ==
--- NOTE | 2022-12-22 22:49 | ED Abdominal Pain ---
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 Patient states that he has had at least 7 episodes of diarrhea in the last hour, nonblack nonbloody. He has been nauseated. He denies any fevers or chills. No sick contacts that he is aware of. He has had prior episodes in the past similar to this. Normal urination. No real abdominal pain. He is most bothered by the diarrhea. Has not taken any medication to try and alleviate the symptoms. No recent antibiotic use or travel. Timing/Duration: 1 Hour Severity/Quality: Moderate Location: Generalized Abdomen Radiation: No Radiation Activities at Onset: None Associated Symptoms: Nausea/Vomiting, Other (diarrhea) (DOROTHEA DRAPER MD) Allergies and Home Medications Allergies Coded Allergies: Penicillins (Unverified Allergy, Mild, 02/17/10) Patient Home Medication List Home Medication List Reviewed: Yes (DOROTHEA DRAPER MD) Albuterol Sulfate (Ventolin Hfa) 90 Mcg Hfa.aer.ad, 1 PUFF PO QID PRN for SHORTNESS OF BREATH, (Reported) Entered as Reported by: AMBREEN HAWTHORNE on 01/18/22 1206 Alprazolam (Alprazolam) 0.5 Mg Tablet, 0.5 MG PO BID, (Reported) Entered as Reported by: AMBREEN HAWTHORNE on 01/18/22 1204 Amlodipine Besylate (Amlodipine Besylate) 10 Mg Tablet, 10 MG PO DAILY, (Reported) Entered as Reported by: AMBREEN HAWTHORNE on 01/18/22 1203 Atorvastatin Calcium (Atorvastatin Calcium) 20 Mg Tablet, 20 MG PO DAILY, (Reported) Entered as Reported by: AMBREEN HAWTHORNE on 01/18/22 1208 Glimepiride (Glimepiride) 4 Mg Tablet, 4 MG PO DAILY, (Reported) Entered as Reported by: AMBREEN HAWTHORNE on 01/18/22 1205 Insulin Glargine,Hum.rec.anlog (Basaglar Kwikpen U-100) 100 Unit/Ml (3 Ml) Insuln.pen, 40 UNIT SQ HS, (Reported) Entered as Reported by: AMBREEN HAWTHORNE on 01/18/22 1159 Lisinopril/Hydrochlorothiazide (Lisinopril-Hctz 20-12.5 mg Tab) 20 Mg-12.5 Mg Tablet, 1 EACH PO DAILY, (Reported) Entered as Reported by: AMBREEN HAWTHORNE on 01/18/22 1206 Metformin HCl (Metformin HCl) 1,000 Mg Tablet, 1,000 MG PO BID, (Reported) Entered as Reported by: AMBREEN HAWTHORNE on 01/18/22 1204 Metoprolol Succinate (Metoprolol Succinate) 50 Mg Tab.er.24h, 50 MG PO DAILY, (Reported) Entered as Reported by: AMBREEN HAWTHORNE on 01/18/22 1200 Omeprazole (Omeprazole) 40 Mg Capsule.dr, 40 MG PO DAILY Prescribed by: KAYLA CAZARES on 01/17/222029 Ondansetron (Ondansetron Odt) 8 Mg Tab.rapdis, 8 MG SL Q8H PRN for N AUSEA/VOMITING Prescribed by: KATIE MARTIN on 12/23/22 1349 Review of Systems Review of Systems Constitutional: see HPI EENTM: No Symptoms Reported Respiratory: No Symptoms Reported Cardiovascular: No Symptoms Reported Gastrointestinal: Diarrhea, Nausea, Vomiting Genitourinary: No Symptoms Reported Musculoskeletal: no symptoms reported Skin: no symptoms reported (DOROTHEA DRAPER MD) All Other Systems Reviewed Negative Unless Noted: Yes (DOROTHEA DRAPER MD) Past Ipoalwy-Fdwjbd-Ophrip Hx Patient Social History Tobacco Use?: No Substance use?: No Alcohol Use?: No Pt feels they are or have been: No (DOROTHEA DRAPER MD) Immunizations Up To Date Tetanus Booster (TDap): More than 5yrs First/Initial COVID19 Vaccinat: 2020 Second COVID19 Vaccination Daron: 2020 Third COVID19 Vaccination Date: N/A (DOROTHEA DRAPER MD) Seasonal Allergies Seasonal Allergies: No (DOROTHEA DRAPER MD) Past Medical History Surgery/Hospitalization HX: pmh: htn, dm2, asthma, hiatal hernia Surgeries: Yes (endoscopy and esophageal dilation) Respiratory: Yes Asthma Currently Using CPAP: No Currently Using BIPAP: No Cardiac: Yes Hypertension Neurological: No Reproductive Disorders: No Genitourinary: No Gastrointestinal: Yes Hiatal Hernia Musculoskeletal: No Endocrine: Yes (DM Type II) Diabetes, Non-Insulin dep HEENT: No Cancer: No Psychosocial: Yes Anxiety, PTSD Integumentary: No Blood Disorders: No (DOROTHEA DRAPER MD) Family Medical History No Pertinent Family Hx (DOROTHEA DRAPER MD) Physical Exam Vital Signs Vital Signs - First Documented 12/22/22 22:40 Temp 36.4 Pulse 107 Resp 18 B/P (MAP) 126/87 (100) Pulse Ox 96 O2 Delivery Room Air (KATIE DEMPSEY MD) Vital Signs Capillary Refill : (DOROTHEA DRAPER MD) Height/Weight/BMI Height: 5'11.00" Weight: 250lbs. oz. [id number]; 34.00 BMI Method:Stated General Appearance: WD/WN, no apparent distress HEENT: PERRL/EOMI Respiratory: lungs clear, normal breath sounds, no respiratory distress, no accessory muscle use Cardiovascular: regular rate, rhythm, tachycardia (105) Gastrointestinal: soft, guarding (voluntary guarding. Normal bowel sounds. No rebound) Extremities: normal range of motion Neurologic/Psychiatric: alert, normal mood/affect, oriented x 3 Skin: normal color, warm/dry (DOROTHEA DRAPER MD) Progress/Results/Core Measures Results/Orders Lab Results Laboratory Tests Test 12/22/22 22:42 Range/Units White Blood Count 10.9 4.3-11.0 10^3/uL Red Blood Count 5.33 4.30-5.52 10^6/uL Hemoglobin 14.7 13.3-17.7 g/dL Hematocrit 45 40-54 % Mean Corpuscular Volume 84 80-99 fL Mean Corpuscular Hemoglobin 28 25-34 pg Mean Corpuscular Hemoglobin Concent 33 32-36 g/dL Red Cell Distribution Width 13.1 10.0-14.5 % Platelet Count 292 130-400 10^3/uL Mean Platelet Volume 11.3 9.0-12.2 fL Immature Granulocyte % (Auto) 1 % Neutrophils (%) (Auto) 76 H 42-75 % Lymphocytes (%) (Auto) 15 12-44 % Monocytes (%) (Auto) 6 0-12 % Eosinophils (%) (Auto) 2 0-10 % Basophils (%) (Auto) 1 0-10 % Neutrophils # (Auto) 8.3 H 1.8-7.8 10^3/uL Lymphocytes # (Auto) 1.6 1.0-4.0 10^3/uL Monocytes # (Auto) 0.7 0.0-1.0 10^3/uL Eosinophils # (Auto) 0.2 0.0-0.3 10^3/uL Basophils # (Auto) 0.1 0.0-0.1 10^3/uL Immature Granulocyte # (Auto) 0.1 0.0-0.1 10^3/uL Sodium Level 142 135-145 MMOL/L Potassium Level 3.6 3.6-5.0 MMOL/L Chloride Level 105 98-107 MMOL/L Carbon Dioxide Level 23 21-32 MMOL/L Anion Gap 14 5-14 MMOL/L Blood Urea Nitrogen 15 7-18 MG/DL Creatinine 1.12 0.60-1.30 MG/DL Estimat Glomerular Filtration Rate 77 BUN/Creatinine Ratio 13 Glucose Level 154 H 70-105 MG/DL Calcium Level 10.1 8.5-10.1 MG/DL (KATIE DEMPSEY MD) Vital Signs/I&O 12/22/22 12/23/22 22:40 00:10 Temp 36.4 Pulse 107 101 Resp 18 18 B/P (MAP) 126/87 (100) 143/103 Pulse Ox 96 99 O2 Delivery Room Air Room Air (KATIE DEMPSEY MD) Progress Progress Note : Time: 00:01 Progress Note Patient seen and evaluated by me. Evaluation today includes physical exam, CBC, Chem-7. Pertinent physical exam findings well-developed well-nourished obese male in no acute distress. He has regular heart rate, clear lungs. Abdomen is not significantly tender. Bowel sounds are present. No involuntary guarding or rebound tenderness is appreciated. Vital signs are stable. Differential diagnosis based on history and physical exam, viral gastroenteritis, colitis. Labs independently reviewed and interpreted by me. CBC is normal, chemistry is normal with slightly elevated glucose. Patient is treated in the emergency department with oral Zofran. He is also given Imodium. He has improvement in his symptoms. He does not have any findings on physical exam to indicate the need for CT scan or suggestion of acute surgical process. I discussed lab results with the patient and return precautions. He verbalized understanding of the plan of care. All questions were sought and answered. No clinical or objective findings to warrant further study or admission at this time. (DOROTHEA DRAPER MD) Progress Note : Time: 13:50 Progress Note Patient called today to inquire about a Zofran prescription. Zofran was refer enced in discharge instructions but a prescription was not sent. I added a Zofran prescription and sent it to [address] [place] [address] [facility] in [place]. Staff will be notifying the patient. (KATIE DEMPSEY MD) Departure Impression Primary Impression: Acute gastroenteritis Disposition: HOME, SELF-CARE Condition: Improved Departure-Patient Inst. Decision time for Depature: 23:57 (DOROTHEA DRAPER MD) Referrals: KAYE GARCIA MD (PCP/Family) Primary Care Physician Patient Instructions: Viral gastroenteritis in adults Add. Discharge Instructions: Use the Zofran every 8 hours as needed for nausea. You can take jrmk-ink-enbmibl antidiarrheal tablets, 2 mg after a diarrheal stool - up to 4 tablets in a 24 hour period. If you develop fever over 101, worsening pain, persistent vomiting in spite of medications - please return to the Emergency Department for re-evaluation. Follow up with your primary care doctor next week. Scripts Ondansetron (Ondansetron Odt) 8 Mg Tab.rapdis 8 MG SL Q8H PRN for NAUSEA/VOMITING, #10 TAB Prov: KATIE DEMPSEY MD 12/23/22 Work/School Note: Work Release Form Date Seen in the Emergency Department: Dec 22, 2022 Return to Work: Dec 24, 2022 Copy Copies To 1: KAYE GARCIA MD, KATHRYN M MD Dec 22, 2022 22:49 KATIE DEMPSEY MD Dec 23, 2022 13:51
[2022-12-22] MEDS ORDERED: NS IV 500 ML 500 ML IV STA (23:04)
[2022-12-22 23:09] LABS: BASOPHILS # (AUTO) 0.1 10^3/uL (0.0-0.1); BASOPHILS % (AUTO) 1 % (0-10); EOSINOPHILS # (AUTO) 0.2 10^3/uL (0.0-0.3); EOSINOPHILS % (AUTO) 2 % (0-10); HEMATOCRIT 45 % (40-54); HEMOGLOBIN 14.7 g/dL (13.3-17.7); LYMPHOCYTES # (AUTO) 1.6 10^3/uL (1.0-4.0); LYMPHOCYTES % (AUTO) 15 % (12-44); MEAN CORPUSCULAR HEMOGLOBIN 28 pg (25-34); MEAN CORPUSCULAR HGB CONC 33 g/dL (32-36); MEAN CORPUSCULAR VOLUME 84 fL (80-99); MEAN PLATELET VOLUME 11.3 fL (9.0-12.2); MONOCYTES # (AUTO) 0.7 10^3/uL (0.0-1.0); MONOCYTES % (AUTO) 6 % (0-12); NEUTROPHILS # (AUTO) 8.3 10^3/uL (1.8-7.8); NEUTROPHILS % (AUTO) 76 % (42-75); PLATELET COUNT 292 10^3/uL (130-400); WHITE BLOOD COUNT 10.9 10^3/uL (4.3-11.0)
[2022-12-22 23:15] LABS: POTASSIUM 3.6 MMOL/L (3.6-5.0)
[2022-12-22] MEDS ORDERED: LOPERAMIDE 2 MG (IMODIUM) TABLET PO ONE (23:15)
[2022-12-22] MEDS ORDERED: ONDANSETRON 4 MG/2 ML (SDV) Z0FRAN IVP ONE (23:15)
[2022-12-22 23:16] LABS: CALCIUM 10.1 MG/DL (8.5-10.1)
[2022-12-22 23:20] LABS: CREATININE SERUM 1.12 MG/DL (0.60-1.30)
[2022-12-22] MEDS ORDERED: NS IV 1000 ML 1,000 ML IV STA (23:23)
[2022-12-23 00:10] VITALS: BP 143/103
[2022-12-23] MEDS ORDERED: ONDA8TAB13 SL (13:49)
== END 2022-12-23 00:10 | disposition home or self-care (01) ==
LOC: EDUNIT# 22:35 → ER 22:36
DX: K52.9 Noninfective gastroenteritis and colitis, unspecified (principal)
CPT/HCPCS: 36415; 80048; 85025

== ENCOUNTER 2023-03-18 20:26 | Emergency (ER) | payer OTHER ==
[~2023-03-18] VITALS: Ht 172 cm; Wt 99.0 kg
[~2023-03-18 20:26] MED LIST changes: +ONDA8TAB13 SL
[2023-03-18] MEDS ORDERED: PROMETHAZINE INJ 25 MG/ML VIAL IM ONE (20:45)
--- NOTE | 2023-03-18 20:45 | ED GI ---
General Chief Complaint: Abdominal/GI Problems Stated Complaint: STOMACH VIRUS, VOMITING, DIZZINESS Nursing Triage Note: PATIENT AMBULATORY TO ROOM WITH COMPLAINT OF N/V/D STARTING AT 1730 TODAY Source of Information: Patient Exam Limitations: No Limitations History of Present Illness Date Seen by Provider: Mar 18, 2023 Time Seen by Provider: 20:35 Initial Comments 57-year-old male presents for nausea vomiting and diffuse cramping of his abdomen for the last 6 hours. He states "I vomited violently 3 times." Did use ODT Zofran without much relief. No other medical concerns at this time. No fevers or sick contacts. All other systems reviewed and negative except documented per HPI. Voice recognition software was used to help create this chart Allergies and Home Medications Allergies Coded Allergies: Penicillins (Unverified Allergy, Mild, 02/17/10) Patient Home Medication List Home Medication List Reviewed: Yes Albuterol Sulfate (Ventolin Hfa) 90 Mcg Hfa.aer.ad, 1 PUFF PO QID PRN for SHORTNESS OF BREATH, (Reported) Entered as Reported by: AMBREEN HAWTHORNE on 01/18/22 1206 Alprazolam (Alprazolam) 0.5 Mg Tablet, 0.5 MG PO BID, (Reported) Entered as Reported by: AMBREEN HAWTHORNE on 01/18/22 1204 Amlodipine Besylate (Amlodipine Besylate) 10 Mg Tablet, 10 MG PO DAILY, (Reported) Entered as Reported by: AMBREEN HAWTHORNE on 01/18/22 1203 Atorvastatin Calcium (Atorvastatin Calcium) 20 Mg Tablet, 20 MG PO DAILY, (Reported) Entered as Reported by: AMBREEN HAWTHORNE on 01/18/22 1208 Glimepiride (Glimepiride) 4 Mg Tablet, 4 MG PO DAILY, (Reported) Entered as Reported by: AMBREEN HAWTHORNE on 01/18/22 1205 Insulin Glargine,Hum.rec.anlog (Basaglar Kwikpen U-100) 100 Unit/Ml (3 Ml) Insuln.pen, 40 UNIT SQ HS, (Reported) Entered as Reported by: AMBREEN HAWTHORNE on 01/18/22 1159 Lisinopril/Hydrochlorothiazide (Lisinopril-Hctz 20-12.5 mg Tab) 20 Mg-12.5 Mg Tablet, 1 EACH PO DAILY, (Reported) Entered as Reported by: AMBREEN HAWTHORNE on 01/18/22 1206 Metformin HCl (Metformin HCl) 1,000 Mg Tablet, 1,000 MG PO BID, (Reported) Entered as Reported by: AMBREEN HAWTHORNE on 01/18/22 1204 Metoprolol Succinate (Metoprolol Succinate) 50 Mg Tab.er.24h, 50 MG PO DAILY, (Reported) Entered as Reported by: AMBREEN HAWTHORNE on 01/18/22 1200 Omeprazole (Omeprazole) 40 Mg Capsule.dr, 40 MG PO DAILY Prescribed by: KAYLA CAZARES on 01/17/222029 Ondansetron (Ondansetron Odt) 8 Mg Tab.rapdis, 8 MG SL Q8H PRN for NAUSEA/VOMITING Prescribed by: KATIE MARTIN on 12/23/22 1349 Review of Systems Review of Systems Constitutional: see HPI Past Aqmdwvj-Lospln-Njqvqi Hx Patient Social History Tobacco Use?: No Use of E-Cig and/or Vaping dev: No Substance use?: No Alcohol Use?: No Immunizations Up To Date Tetanus Booster (TDap): More than 5yrs First/Initial COVID19 Vaccinat: 2020 Second COVID19 Vaccination Daron: 2020 Third COVID19 Vaccination Date: N/A Seasonal Allergies Seasonal Allergies: No Past Medical History Surgery/Hospitalization HX: pmh: htn, dm2, asthma, hiatal hernia Surgeries: Yes (endoscopy and esophageal dilation) Respiratory: Yes Asthma Currently Using CPAP: No Currently Using BIPAP: No Cardiac: Yes Hypertension Neurological: No Reproductive Disorders: No Genitourinary: No Gastrointestinal: Yes Hiatal Hernia Musculoskeletal: No Endocrine: Yes (DM Type II) Diabetes, Non-Insulin dep HEENT: No Cancer: No Psychosocial: Yes Anxiety, PTSD Integumentary: No Blood Disorders: No Family Medical History No Pertinent Family Hx Physical Exam Vital Signs Vital Signs - First Documented 03/18/23 20:36 Pulse 83 Resp 20 B/P (MAP) 136/83 (100) Pulse Ox 94 O2 Delivery Room Air Capillary Refill : Less Than 3 Seconds Height/Weight/BMI Height: 5'11.00" Weight: 250lbs. oz. 113.790744hc; 33.00 BMI Method:Stated General Appearance: WD/WN, no apparent distress HEENT: normal ENT inspection, pharynx normal Neck: non-tender, supple Respiratory: chest non-tender, lungs clear, normal breath sounds, no respiratory distress, no accessory muscle use Cardiovascular: regular rate, rhythm, no murmur Gastrointestinal: normal bowel sounds, non tender, soft, no organomegaly Extremities: normal range of motion, non-tender, normal inspection Neurologic/Psychiatric: alert, oriented x 3 Skin: normal color, warm/dry Progress/Results/Core Measures Results/Orders My Orders Orders - DANYEL STEIN DO Promethazine Injection (Promethazine I (03/18/23 20:45) Medications Given in ED Current Medications Medications Dose Ordered Sig/Janina Route Start Time Stop Time Status Last Admin Dose Admin Promethazine HCl 25 mg ONCE ONCE IM 03/18/23 20:45 03/18/23 20:46 DC 03/18/23 20:57 25 MG Vital Signs/I&O 03/18/23 20:36 Pulse 83 Resp 20 B/P (MAP) 136/83 (100) Pulse Ox 94 O2 Delivery Room Air Blood Pressure Mean: 100 Departure Communication (Admissions) Patient is hemodynamically stable. He has had 3 episodes of vomiting. No indication for labs at this time. Vital signs are normal. He is given IM Phenergan and discharged home in stable condition Impression Primary Impression: Nausea and vomiting Qualified Codes: R11.2 - Nausea with vomiting, unspecified Disposition: 01 HOME, SELF-CARE Condition: Stable Departure-Patient Inst. Referrals: KAYE GARCIA MD (PCP/Family) Primary Care Physician Patient Instructions: Nausea and Vomiting, Adult (DC) Add. Discharge Instructions: Continue to use Zofran at home as needed. Increase your fluids at home by taking small sips of fluids every 15 to 20 minutes. Do not overfill your stomach as this will promote vomiting. You will continue to have some vomiting during this illness which is normal. Do the best she can to maintain hydration. Return to the emergency department for any severe concerns. Follow-up with your primary doctor for any nonemergent needs All discharge instructions reviewed with patient and/or family. Voiced understanding. DANYEL STEIN DO Mar 18, 2023 20:45
[2023-03-18 21:10] VITALS: BP 136/83
== END 2023-03-18 21:10 | disposition home or self-care (01) ==
LOC: EDUNIT# 20:26 → ER 20:29
DX: R11.2 Nausea with vomiting, unspecified (principal)
CPT/HCPCS: 99284

== ENCOUNTER 2023-06-07 17:02 | Emergency (ER) | payer OTHER ==
[~2023-06-07] VITALS: Ht 180 cm; Wt 114.0 kg
[~2023-06-07 17:02] MED LIST changes: +PROM25TA14 PO
[2023-06-07] MEDS ORDERED: NS IV 1000 ML 1,000 ML IV STA (17:18)
--- NOTE | 2023-06-07 17:22 | ED Abdominal Pain ---
General Chief Complaint: Abdominal/GI Problems Stated Complaint: FLU SYMPTOMS Source of Information: Patient Exam Limitations: No Limitations History of Present Illness Date Seen by Provider: Jun 07, 2023 Time Seen by Provider: 17:20 Initial Comments Patient is a 57-year-old male who presents ED with right upper quadrant abdominal pain. Pain started 2 hours ago. Described as crampy intermittent rates pain 4 out of 10. Pain does not radiate to his back or shoulder. Reports 5 episodes of vomiting. He states he ate a sausage biscuit this morning that did not taste right or smell right. Denies history of previous abdominal surgery. Denies taking thing at home. Denies any diarrhea, pain with urination, chest pain, shortness of breath, cough, fever, chills, headache, dizziness, visual changes. Allergies and Home Medications Allergies Coded Allergies: Penicillins (Unverified Allergy, Mild, 02/17/10) Patient Home Medication List Home Medication List Reviewed: Yes Albuterol Sulfate (Ventolin Hfa) 90 Mcg Hfa.aer.ad, 1 PUFF PO QID PRN for SHORTNESS OF BREATH, (Reported) Entered as Reported by: AMBREEN HAWTHORNE on 01/18/22 1206 Alprazolam (Alprazolam) 0.5 Mg Tablet, 0.5 MG PO BID, (Reported) Entered as Reported by: AMBREEN HAWTHORNE on 01/18/22 1204 Amlodipine Besylate (Amlodipine Besylate) 10 Mg Tablet, 10 MG PO DAILY, (Reported) Entered as Reported by: AMBREEN HAWTHORNE on 01/18/22 1203 Atorvastatin Calcium (Atorvastatin Calcium) 20 Mg Tablet, 20 MG PO DAILY, (Reported) Entered as Reported by: AMBREEN HAWTHORNE on 01/18/22 1208 Ciprofloxacin HCl (Ciprofloxacin HCl) 500 Mg Tablet, 500 MG PO BID Prescribed by: SUKUMAR ESCOBEDO on 06/07/23 185 Glimepiride (Glimepiride) 4 Mg Tablet, 4 MG PO DAILY, (Reported) Entered as Reported by: AMBREEN HAWTHORNE on 01/18/22 120 Hydrocodone/Acetaminophen (Hydrocodone-Acetamin 5-325 mg) 5 Mg-325 Mg Tablet, 1 TAB PO Q4H PRN for PAIN-MODERATE (5-7) Prescribed by: SUKUMAR ESCOBEDO on 06/07/23 185 Insulin Glargine,Hum.rec.anlog (Basaglar Violaikpen U-100) 100 Unit/Ml (3 Ml) In suln.pen, 40 UNIT SQ HS, (Reported) Entered as Reported by: AMBREEN HAWTHORNE on 01/18/22 1159 Lisinopril/Hydrochlorothiazide (Lisinopril-Hctz 20-12.5 mg Tab) 20 Mg-12.5 Mg Tablet, 1 EACH PO DAILY, (Reported) Entered as Reported by: AMBREEN HAWTHORNE on 01/18/22 1206 Metformin HCl (Metformin HCl) 1,000 Mg Tablet, 1,000 MG PO BID, (Reported) Entered as Reported by: AMBREEN HAWTHORNE on 01/18/22 1204 Metoprolol Succinate (Metoprolol Succinate) 50 Mg Tab.er.24h, 50 MG PO DAILY, (Reported) Entered as Reported by: AMBREEN HAWTHORNE on 01/18/22 1200 Metronidazole (Metronidazole) 500 Mg Tablet, 500 MG PO TID Prescribed by: SUKUMAR ESCOBEDO on 06/07/23 185 Omeprazole (Omeprazole) 40 Mg Capsule.dr, 40 MG PO DAILY Prescribed by: KAYLA MALDONADO on 01/17/22 2030 Ondansetron (Ondansetron Odt) 8 Mg Tab.rapdis, 8 MG SL Q8H PRN for NAUSEA/VOMITING Prescribed by: KATIE MARTIN on 12/23/22 1349 Promethazine HCl (Promethazine Tablet) 25 Mg Tablet, 25 MG PO Q6H PRN for NAUSEA/VOMITING Prescribed by: DANYEL STEIN MD on 04/02/23 1836 Review of Systems Review of Systems Constitutional: No chills, No diaphoresis, No malaise, No weakness EENTM: No Double Vision, No Eye Pain Respiratory: Denies Cough, Denies Orthopnea Cardiovascular: Denies Chest Pain Gastrointestinal: Abdominal Pain; Denies Diarrhea; Nausea, Vomiting Genitourinary: Denies Burning, Denies Discharge, Denies Drainage, Denies Frequency Musculoskeletal: No back pain, No joint pain Skin: No change in color, No change in hair/nails All Other Systems Reviewed Negative Unless Noted: Yes Past Fybphaz-Fvbwlj-Sgspdr Hx Immunizations Up To Date Tetanus Booster (TDap): More than 5yrs First/Initial COVID19 Vaccinat: 2020 Second COVID19 Vaccination Daron: 2020 Third COVID19 Vaccination Date: N/A Seasonal Allergies Seasonal Allergies: No Past Medical History Surgery/Hospitalization HX: pmh: htn, dm2, asthma, hiatal hernia surg. endoscopy Surgeries: Yes (endoscopy and esophageal dilation) Respiratory: Yes Asthma Currently Using CPAP: No Currently Using BIPAP: No Cardiac: Yes Hypertension Neurological: No Reproductive Disorders: No Genitourinary: No Gastrointestinal: Yes Hiatal Hernia Musculoskeletal: No Endocrine: Yes (DM Type II) Diabetes, Non-Insulin dep HEENT: No Cancer: No Psychosocial: Yes Anxiety, PTSD Integumentary: No Blood Disorders: No Family Medical History No Pertinent Family Hx Physical Exam Vital Signs Vital Signs - First Documented 06/07/23 17:12 Temp 36.8 Pulse 86 Resp 20 B/P (MAP) 118/77 (91) Pulse Ox 97 O2 Delivery Room Air Capillary Refill : Height/Weight/BMI Height: 5'11.00" Weight: 250lbs. oz. [id number]; 34.00 BMI Method:Stated General Appearance: WD/WN, no apparent distress HEENT: PERRL/EOMI, normal ENT inspection, TMs normal, pharynx normal Neck: non-tender, full range of motion, supple, normal inspection Respiratory: chest non-tender, lungs clear, normal breath sounds, no respiratory distress, no accessory muscle use Cardiovascular: regular rate, rhythm, no edema, no gallop, no JVD Gastrointestinal: normal bowel sounds, soft, no organomegaly, tenderness (Right upper quadrant tenderness, epigastric tenderness. 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, no motor/sensory deficits, alert, normal mood/affect, oriented x 3 Skin: normal color, warm/dry Progress/Results/Core Measures Results/Orders Lab Results Laboratory Tests Test 06/07/23 17:15 06/07/23 17:25 Range/Units Influenza Type A (RT-PCR) Not Detected Not Detecte Influenza Type B (RT-PCR) Not Detected Not Detecte SARS-CoV-2 RNA (RT-PCR) Not Detected Not Detecte White Blood Count 14.9 H 4.3-11.0 10^3/uL Red Blood Count 5.60 H 4.30-5.52 10^6/uL Hemoglobin 15.1 13.3-17.7 g/dL Hematocrit 48 40-54 % Mean Corpuscular Volume 85 80-99 fL Mean Corpuscular Hemoglobin 27 25-34 pg Mean Corpuscular Hemoglobin Concent 32 32-36 g/dL Red Cell Distribution Width 13.2 10.0-14.5 % Platelet Count 244 130-400 10^3/uL Mean Platelet Volume 11.8 9.0-12.2 fL Immature Granulocyte % (Auto) 1 % Neutrophils (%) (Auto) 78 H 42-75 % Lymphocytes (%) (Auto) 11 L 12-44 % Monocytes (%) (Auto) 8 0-12 % Eosinophils (%) (Auto) 2 0-10 % Basophils (%) (Auto) 1 0-10 % Neutrophils # (Auto) 11.6 H 1.8-7.8 10^3/uL Lymphocytes # (Auto) 1.7 1.0-4.0 10^3/uL Monocytes # (Auto) 1.2 H 0.0-1.0 10^3/uL Eosinophils # (Auto) 0.3 0.0-0.3 10^3/uL Basophils # (Auto) 0.1 0.0-0.1 10^3/uL Immature Granulocyte # (Auto) 0.1 0.0-0.1 10^3/uL Neutrophils % (Manual) 46 % Lymphocytes % (Manual) 10 % Monocytes % (Manual) 5 % Eosinophils % (Manual) 4 % Basophils % (Manual) 0 % Band Neutrophils 26 % Reactive Lymphocytes 9 % Blood Morphology Comment NORMAL Prothrombin Time 13.6 12.2-14.7 SEC INR Comment 1.0 0.8-1.4 Activated Partial Thromboplast Time 24 24-35 SEC Sodium Level 138 135-145 MMOL/L Potassium Level 3.4 L 3.6-5.0 MMOL/L Chloride Level 104 98-107 MMOL/L Carbon Dioxide Level 23 21-32 MMOL/L Anion Gap 11 5-14 MMOL/L Blood Urea Nitrogen 12 7-18 MG/DL Creatinine 1.17 0.60-1.30 MG/DL Estimat Glomerular Filtration Rate 73 BUN/Creatinine Ratio 10 Glucose Level 237 H 70-105 MG/DL Calcium Level 9.9 8.5-10.1 MG/DL Corrected Calcium 9.5 8.5-10.1 MG/DL Total Bilirubin 0.5 0.1-1.0 MG/DL Aspartate Amino Transf (AST/SGOT) 31 5-34 U/L Alanine Aminotransferase (ALT/SGPT) 42 0-55 U/L Alkaline Phosphatase 84 40-136 U/L Total Protein 7.6 6.4-8.2 GM/DL Albumin 4.5 3.2-4.5 GM/DL Lipase 13 8-78 U/L My Orders Orders - JUNE DILLON Covid 19 Inhouse Test (06/07/23 17:06) Influenza A And B By Pcr (06/07/23 17:06) Cbc And Automated Diff (06/07/23 17:18) Comprehensive Metabolic Panel (06/07/23 17:18) Lipase (06/07/23 17:18) Ct Abdomen/Pelvis W (06/07/23 17:18) Ns Iv 1000 Ml (Ns Iv 1000 Ml) (06/07/23 17:18) Ondansetron Injection (Ondansetron Inj (06/07/23 17:30) Partial Thromboplastin Time (06/07/23 17:40) Protime With Inr (06/07/23 17:40) Manual Differential (06/07/23 17:25) Iohexol Injection (Omnipaque 350 Mg/Ml 1 (06/07/23 18:30) Received Contrast (Hold Metformin- Contr (06/07/23 18:30) Ns (Ivpb) 100 Ml (Sodium Chloride 0.9% 1 (06/07/23 18:30) Medications Given in ED Current Medications Medications Dose Ordered Sig/Janina Route Start Time Stop Time Status Last Admin Dose Admin Iohexol 100 ml ONCE ONCE IV 06/07/23 18:30 06/07/23 18:31 DC 06/07/23 18:20 100 ML Ondansetron HCl 4 mg ONCE ONCE IVP 06/07/23 17:30 12 17:31 DC 06/07/23 17:30 4 MG Sodium Chloride 100 ml ONCE ONCE IV 06/07/23 18:30 06/07/23 18:31 DC 06/07/23 18:20 80 ML Vital Signs/I&O 06/07/23 06/07/23 17:12 18:57 Temp 36.8 36.4 Pulse 86 84 Resp 20 16 B/P (MAP) 118/77 (91) 151/88 Pulse Ox 97 96 O2 Delivery Room Air Room Air Departure Communication (PCP) Patient is a 57-year-old male who presents to the ED for right-sided abdominal pain. This started 2 hours ago. He did eat a biscuit this morning and states it did not taste well or smell good. Started feeling sick throughout the day developed a crampy pain in his right sided abdomen. Reports several bouts of vomiting. Associated diarrhea. No history of previous abdominal surgery. History of GERD. History of esophageal stricture. Does take Protonix. No history inflammatory bowel disease. No specific urinary symptoms. Did have tenderness right upper quadrant. Do not have ultrasound in the evenings. CBC's, CMP, lipase. No chest pain or shortness of breath. Very mild distress. Refused anything for pain. Started on liter of fluid and was given IV Zofran. CBC showed white blood count 14.9. Bands noted left shift. Chemistry was grossly unremarkable. Normal liver enzymes, lipase. Blood sugar 237. He is type 2 diabetic. Urinalysis negative for infection. CT abdomen and pelvis did show some mild wall thickening of the distal esophagus. Diffusely thick-walled fluid-filled small bowel loops suggesting enteritis. Some fluid in the right colon and portions of the descending colon consistent with colitis. There is inflammatory changes about the gallbladder thickening noted. An adjacent hy podensity at the tip of the gallbladder nonspecific perhaps normal fluid in the gallbladder. Pain improved after fluids and Zofran. No specific tenderness. Due to the abnormal findings consulted general surgery Dr. Maldonado. At this time he suggest starting Cipro and Flagyl. Discharged with pain medication. Clear liquids. Need to follow-up in 7 days for reevaluation. Will need to differentiate the colitis versus acalculus cholecystitis. It was recommended if any increased worsening pain, fever vomiting to return back to ED. Patient agrees with plan of action. Follow-up your PCP in 2 days for reevaluation. Impression Primary Impression: Colitis Disposition: 01 HOME, SELF-CARE Condition: Stable Departure-Patient Inst. Decision time for Depature: 18:50 Referrals: KIDO,TAKAAKAYE PALENCIA MD, MD (PCP/Family) Primary Care Physician Patient Instructions: Colitis (DC) Add. Discharge Instructions: Recommend following up with general surgery in the next 7 days. Clear liquid at this time. If any worsening pain fever vomiting to return back to ED. All discharge instructions reviewed with patient and/or family. Voiced understanding. Scripts Hydrocodone/Acetaminophen (Hydrocodone-Acetamin 5-325 mg) 5 Mg-325 Mg Tablet 1 TAB PO Q4H PRN for PAIN-MODERATE (5-7), #8 TAB Prov: JUNE DILLON 06/07/23 Metronidazole (Metronidazole) 500 Mg Tablet 500 MG PO TID for 7 Days, #21 TAB Prov: JUNE DILLON 06/07/23 Ciprofloxacin HCl (Ciprofloxacin HCl) 500 Mg Tablet 500 MG PO BID for 7 Days, #14 TAB Prov: JUNE DILLON 06/07/23 JUNE DILLON Jun 07, 2023 17:22
[2023-06-07] MEDS ORDERED: ONDANSETRON INJECTION 4 MG/2 ML (SDV) IVP ONE (17:30)
[2023-06-07 17:55] LABS: BASOPHILS # (AUTO) 0.1 10^3/uL (0.0-0.1); BASOPHILS % (AUTO) 1 % (0-10); EOSINOPHILS # (AUTO) 0.3 10^3/uL (0.0-0.3); EOSINOPHILS % (AUTO) 2 % (0-10); HEMATOCRIT 48 % (40-54); HEMOGLOBIN 15.1 g/dL (13.3-17.7); LYMPHOCYTES # (AUTO) 1.7 10^3/uL (1.0-4.0); LYMPHOCYTES % (AUTO) 11 % (12-44); MEAN CORPUSCULAR HEMOGLOBIN 27 pg (25-34); MEAN CORPUSCULAR HGB CONC 32 g/dL (32-36); MEAN CORPUSCULAR VOLUME 85 fL (80-99); MEAN PLATELET VOLUME 11.8 fL (9.0-12.2); MONOCYTES # (AUTO) 1.2 10^3/uL (0.0-1.0); MONOCYTES % (AUTO) 8 % (0-12); NEUTROPHILS # (AUTO) 11.6 10^3/uL (1.8-7.8); NEUTROPHILS % (AUTO) 78 % (42-75); PLATELET COUNT 244 10^3/uL (130-400); WHITE BLOOD COUNT 14.9 10^3/uL (4.3-11.0)
[2023-06-07 17:56] LABS: ALBUMIN 4.5 GM/DL (3.2-4.5)
[2023-06-07 17:57] LABS: POTASSIUM 3.4 MMOL/L (3.6-5.0)
[2023-06-07 17:58] LABS: CALCIUM 9.9 MG/DL (8.5-10.1)
[2023-06-07 17:59] LABS: TOTAL PROTEIN 7.6 GM/DL (6.4-8.2)
[2023-06-07 18:00] LABS: PROTHROMBIN TIME PATIENT 13.6 SEC (12.2-14.7)
[2023-06-07 18:01] LABS: BILIRUBIN,TOTAL 0.5 MG/DL (0.1-1.0)
[2023-06-07 18:03] LABS: CREATININE SERUM 1.17 MG/DL (0.60-1.30)
--- NOTE | 2023-06-07 18:29 | Diagnostic Imaging Report ---
PROCEDURE: CT abdomen and pelvis with contrast. TECHNIQUE: Multiple contiguous axial images were obtained through the abdomen and pelvis after administration of intravenous contrast. Auto Exposure Controls were utilized during the CT exam to meet ALARA standards for radiation dose reduction. All CT scans use one or more of the following dose optimizing techniques: automated exposure control, MA and/or KvP adjustment based on patient size and exam type or iterative reconstruction. INDICATION: Pain, nausea, vomiting and diarrhea x2 hours. Vomiting blood. EXAMINATION: CT abdomen and pelvis with contrast 06/07/2023. FINDINGS: Lung bases unremarkable. Mild wall thickening of the distal esophagus is noted, incomplete distention with possibility of erosive esophagitis is another possibility. 5. Diffusely thick walled fluid-filled small bowel loops suggest enteritis, no obstructive process. There is some fluid in the right colon and portions of the descending colon consistent with colitis. No significant free fluid. No abscess. There is inflammatory change about the gallbladder with wall thickening noted. An adjacent hypodensity at the tip of the gallbladder nonspecific perhaps normal fluid in the gallbladder with a mass difficult to exclude but less likely. There is hepatic steatosis. Spleen is normal. Pancreas atrophied. Adrenal glands unremarkable. Kidneys unremarkable. There is atherosclerotic disease. Appendix normal. No acute osseous normality. IMPRESSION: 1. Findings suggestive of enteritis and colitis. 2. Possible acute cholecystitis correlate with symptoms and sonography if necessary. 3. Hepatic steatosis. 4. Possible esophagitis versus underdistention. Dictated by: Dictated on workstation # [id number]
[2023-06-07] MEDS ORDERED: HOLD METFORMIN - RECEIVED CONTRAST 20 ML VIAL IV SCH (18:30)
[2023-06-07] MEDS ORDERED: IOHEXOL 350 MG/ML 100 ML (OMNIPAQUE 350) VIAL IV ONE (18:30)
[2023-06-07] MEDS ORDERED: NS 100 ML (IVPB) BAG IV ONE (18:30)
[2023-06-07 18:40] LABS: BAND NEUTROPHILS 26 %; LYMPHOCYTES % (MANUAL) 10 %; MONOCYTES % (MANUAL) 5 %; NEUTROPHILS % (MANUAL) 46 %
[2023-06-07 18:41] LABS: BASOPHILS % (MANUAL) 0 %; EOSINOPHILS % (MANUAL) 4 %; RBC MORPH NORMAL; REACTIVE LYMPHOCYTES 9 %
[2023-06-07] MEDS ORDERED: ONDA4TAB11 SL (18:52)
[2023-06-07] MEDS ORDERED: METR-145 PO (18:52)
[2023-06-07] MEDS ORDERED: CIPR500T5 PO (18:52)
[2023-06-07] MEDS ORDERED: ACHD5005 PO (18:52)
[2023-06-07 18:57] VITALS: BP 151/88
== END 2023-06-07 19:00 | disposition home or self-care (01) ==
LOC: EDUNIT# 17:02 → ER 17:03
DX: K52.9 Noninfective gastroenteritis and colitis, unspecified (principal); Z88.0 Allergy status to penicillin
CPT/HCPCS: 36415; 74177; 80053; 83690; 85007; 85027; 85610; 85730; 87636